=== PATIENT | female | born 1970 | race Caucasian/White ===

== ENCOUNTER → 2018-02-14 00:28 | Outpatient (CLI) | payer MEDICAID, SELFPAY ==
--- NOTE | 2018-02-14 12:32 | MERGE_ITS ---
*[facility]* * Cardiology* [address] [place] [address] Date of study: 02/14/2018 Transthoracic Echocardiography M-mode, complete 2D, complete spectral Doppler, and color Doppler *STUDY CONCLUSIONS* Impressions: The 04/2017 study was not available for direct comparison, however, there has been no significant change from the report of that study. Summary: 1. Left ventricle: Systolic function was normal. The estimated ejection fraction was 55-60%. Wall motion was normal; there were no regional wall motion abnormalities. Diastolic parameters were normal. Global longitudinal strain was normal at -19.6 %. 2. Right ventricle: The cavity size was normal. Wall thickness was normal. Systolic function was normal. *PATIENT PRESENTATION* Height: 175.3cm ((69in) ) S/D Pressure: 119 / 71 Weight: 54.4kg ((119.7lb) ) BSA: 1.66m^2 Test start time: 12:40 PM. Test stop time: 01:30 PM. PERFORMING Unknown ORDERING Herbert Ramos REFERRING Herbert Ramos PERFORMING [facility] [employer] RT Kristine Shane)(DAVID)CORTEZ *PROCEDURE DATA* Procedure information: The patient was identified by two identifiers. This study was interpreted by [facility] Cardiology. Pertinent images and digital data are archived for permanent storage and are available for subsequent review. No prior study was available for comparison. Study status: Routine. Transthoracic echocardiography. M-mode, complete 2D, complete spectral Doppler, and color Doppler. A Transthoracic Echocardiogram was performed. Scanning was performed from the parasternal, apical, subcostal, and suprasternal notch acoustic windows. Images were obtained using an [id number] cardiac ultrasound machine. Image quality was adequate. Study completion: The patient tolerated the procedure well. There were no complications. 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 *CARDIAC ANATOMY* Left ventricle: Systolic function was normal. The estimated ejection fraction was 55-60%. Wall motion was normal; there were no regional wall motion abnormalities. Global longitudinal strain was normal at -19.6 %. Diastolic parameters were normal. Aortic valve: Mildly thickened leaflets. Doppler: There was trivial regurgitation. VTI ratio of LVOT to aortic valve: 0.84. Valve area (VTI): 2.7cm^2. Indexed valve area (VTI): 1.6cm^2/m^2. Peak velocity ratio of LVOT to aortic valve: 0.81. Valve area (Vmax): 2.6cm^2. Indexed valve area (Vmax): 1.5cm^2/m^2. Mean velocity ratio of LVOT to aortic valve: 0.88. Valve area (Vmean): 2.8cm^2. Indexed valve area (Vmean): 1.7cm^2/m^2. Mean gradient (S): 4.5mm Hg. Peak gradient (S): 8.2mm Hg. Mitral valve: Structurally normal valve. Mobility was not restricted. Doppler: Transvalvular velocity was within the normal range. There was no evidence for stenosis. There was no significant regurgitation. Valve area by pressure half-time: 4.4cm^2. Indexed valve area by pressure half-time: 2.6cm^2/m^2. Left atrium: The atrium was normal in size. Right ventricle: The cavity size was normal. Wall thickness was normal. Systolic function was normal. Pulmonic valve: The pulmonary valve appears to be grossly normal. Doppler: Transvalvular velocity was within the normal range. There was no evidence for stenosis. There was no significant regurgitation. Peak gradient (S): 3.9mm Hg. Tricuspid valve: Structurally normal valve. Doppler: Transvalvular velocity was within the normal range. There was no evidence for stenosis. There was trivial regurgitation. Pulmonary artery: Pulmonary systolic pressure was in the range of 30mm Hg to 35mm Hg. Right atrium: The atrium was normal in size. Pericardium: There was no pericardial effusion. Systemic veins: Inferior vena cava: Well visualized. The vessel was patent and normal in size. The respirophasic diameter changes were in the normal range (greater than or equal to 50%). Baseline ECG: Normal sinus rhythm. Measurements Left ventricle Value Reference LV ID, ED, PLAX 4.7 cm 3.5 - 6.0 LV ID, ES, PLAX 3.4 cm 2.1 - 4.0 LV PW thickness, ED, PLAX 1.0 cm LV end-diastolic volume, 1-p A2C 115 ml LV ejection fraction, 1-p A2C 65 % LV end-diastolic volume, 1-p A4C 94 ml LV ejection fraction, 1-p A4C 56 % LV e', lateral 0.102 m/sec LV E/e', lateral 6 LV e', medial 0.082 m/sec LV E/e', medial 8 LV e', average 0.092 m/sec LV E/e', average 7 Ventricular septum Value Reference IVS thickness, ED, PLAX 0.9 cm LVOT Value Reference LVOT ID, A-P 2.0 cm LVOT area 3.2 cm^2 LVOT peak velocity, S 1.16 m/sec LVOT mean velocity, S 0.88 m/sec LVOT VTI, S 23.0 cm LVOT peak gradient, S 5.4 mm Hg LVOT mean gradient, S 3.3 mm Hg Stroke volume (SV), LVOT DP 73 ml Stroke index (SV/bsa), LVOT DP 44 ml/m^2 Aortic valve Value Reference Aortic valve peak velocity, S 1.4 m/sec Aortic valve mean velocity, S 1 m/sec Aortic valve VTI, S 27.4 cm Aortic mean gradient, S 4.5 mm Hg Aortic peak gradient, S 8.2 mm Hg VTI ratio, LVOT/AV 0.84 Aortic valve area, VTI 2.7 cm^2 Velocity ratio, peak, LVOT/AV 0.81 Aortic valve area, peak velocity 2.6 cm^2 Velocity ratio, mean, LVOT/AV 0.88 Aortic valve area, mean velocity 2.8 cm^2 Aortic valve area/bsa, mean velocity 1.7 cm^2/m^2 Aorta Value Reference Aortic root ID, ED 2.9 cm Ascending aorta ID, A-P, S 3.2 cm RVOT Value Reference RVOT VTI, S 16.8 cm Left atrium Value Reference LA ID, A-P, ES 3.6 cm LA ID/bsa, A-P 2.2 cm/m^2 <=2.2 LA area, ES, A4C 17.4 cm^2 8.8 - 23.4 LA area, ES, A2C 15 cm^2 LA volume/bsa, ES, 1-p A4C 29 ml/m^2 LA volume, ES, 2-p 37 ml LA volume/bsa, ES, 2-p 22 ml/m^2 LA/aortic root ratio 1.26 Mitral valve Value Reference Mitral E-wave peak velocity 0.65 m/sec Mitral A-wave peak velocity 0.61 m/sec Mitral deceleration time 174 ms 150 - 230 Mitral pressure half-time 50 ms Mitral E/A ratio, peak 1.08 Mitral valve area, PHT, DP 4.4 cm^2 Pulmonary veins Value Reference Pulmonary vein peak velocity, S 0.61 m/sec Pulmonary vein peak velocity, D 0.52 m/sec Pulmonary vein velocity ratio, peak, 1.17 S/D Pulmonary vein A-wave reversal peak 0.87 m/sec velocity Tricuspid valve Value Reference Tricuspid regurg peak velocity 2.6 m/sec Tricuspid peak RV-RA gradient 26.9 mm Hg Right atrium Value Reference RA area, ES, A4C 11.3 cm^2 8.3 - 19.5 Pulmonic valve Value Reference Pulmonic peak gradient, S 3.9 mm Hg Legend: (L) and (H) yakelin values outside specified reference range. I have personally reviewed the images and have reviewed and edited the reported findings. Electronically signed by Teja Kan 02/14/2018 14:33
== END ==
PROVIDERS: PCP Nurse Practitioner Gerontology; Visit Provider Internal Medicine Medical Oncology
DX: C50.411 Malignant neoplasm of upper-outer quadrant of right female breast (principal); Z17.0 Estrogen receptor positive status [ER+]; Z13.6 Encounter for screening for cardiovascular disorders
CPT/HCPCS: 93306

== ENCOUNTER 2018-02-22 03:08 | Outpatient (RCR) | payer MEDICAID, SELFPAY ==
[2018-02-22] MEDS: Normal Saline Flush 10 ML SYR IVP (07:10)
[2018-02-22 07:30] LABS: Abs Immature Grans 0.01 k/cumm (0.0-0.09); Absolute Eosinophil Count 0.12 k/cumm (0.0-0.7); Absolute Neutrophil Count 3.54 k/cumm (1.2-6.7); Eosinophils % 2.1; HCT 38.8 % (36.0-46.0); HGB 13.5 g/dL (12.0-15.5); Immature Grans % 0.2; Lymphocytes % 28.2; Mean Corp. HGB Concentration 34.8 g/dL (32.0-36.0); Mean Corpuscular Volume 103.5 fL (80-95); Mean Platelet Volume 10.4 fL (8.0-11.0); Monocytes % 7.1; Neutrophils % 62.4; Platelet Count 173 x1000/uL (130-400); RBC 3.75 m/cumm (4.00-5.20); RBC Distribution Width 12.8 % (11.7-14.6); White Blood Cell Count 5.67 k/cumm (4.4-10.8)
[2018-02-22 07:43] LABS: ALT 30 U/L (12-78); AST 21 U/L (15-37); Albumin 3.4 g/dL (3.4-5.0); Alkaline Phosphatase 74 U/L (46-116); Anion Gap 10.9 mmol/L (3-11); BUN 7 mg/dL (7-18); Bilirubin, Total 0.3 mg/dL (0.2-1.0); CO2 27.1 mmol/L (21.0-32.0); CREATININE 0.58 mg/dL (0.55-1.02); Calcium 8.4 mg/dL (8.5-10.1); Chloride 103 mmol/L (98-107); Glucose 95 mg/dL (70-100); Potassium 3.6 mmol/L (3.5-5.1); Sodium 141 mmol/L (136-145)
[2018-02-23 09:59] LABS: FSH 109.4 mIU/ml; LH 64.8 mIU/ml
[2018-02-24 16:04] LABS: Estradiol, Mass Spectrometry <10 pg/mL; Estrone <10 pg/mL
[2018-03-15] MEDS: Normal Saline Flush 10 ML SYR IVP (07:45)
[2018-03-15 08:00] LABS: Abs Immature Grans 0.02 k/cumm (0.0-0.09); Absolute Basophil Count 0.01 k/cumm (0.0-0.2); Absolute Eosinophil Count 0.99 k/cumm (0.0-0.7); Absolute Lymphocyte Count 1.74 k/cumm (1.2-3.4); Absolute Monocyte Count 0.49 k/cumm (0.11-0.7); Absolute Neutrophil Count 6.46 k/cumm (1.2-6.7); Basophils % 0.1; Eosinophils % 10.2; HGB 13.7 g/dL (12.0-15.5); Immature Grans % 0.2; Lymphocytes % 17.9; Mean Corp. HGB Concentration 34.3 g/dL (32.0-36.0); Mean Corpuscular Volume 102.3 fL (80-95); Mean Platelet Volume 10.5 fL (8.0-11.0); Neutrophils % 66.6; Platelet Count 204 x1000/uL (130-400); RBC 3.91 m/cumm (4.00-5.20); RBC Distribution Width 12.5 % (11.7-14.6); White Blood Cell Count 9.71 k/cumm (4.4-10.8)
[2018-03-15 08:15] LABS: ALT 31 U/L (12-78); AST 26 U/L (15-37); Albumin 3.5 g/dL (3.4-5.0); Alkaline Phosphatase 88 U/L (46-116); Anion Gap 8.4 mmol/L (3-11); BUN 9 mg/dL (7-18); Bilirubin, Total 0.4 mg/dL (0.2-1.0); CO2 25.6 mmol/L (21.0-32.0); CREATININE 0.61 mg/dL (0.55-1.02); Calcium 8.7 mg/dL (8.5-10.1); Chloride 101 mmol/L (98-107); Glucose 93 mg/dL (70-100); Potassium 3.9 mmol/L (3.5-5.1); Sodium 135 mmol/L (136-145); Total Protein 7.3 g/dL (6.4-8.2)
== END 2018-03-16 ==
LOC: INF 03:27
PROVIDERS: PCP Nurse Practitioner Gerontology; Visit Provider Internal Medicine Medical Oncology
DX: C50.411 Malignant neoplasm of upper-outer quadrant of right female breast (principal); Z17.0 Estrogen receptor positive status [ER+]; Z45.2 Encounter for adjustment and management of vascular access device
CPT/HCPCS: 36591; 80053; 82670; 82679; 83001; 83002; 85025

== ENCOUNTER 2018-04-05 01:16 | Outpatient (RCR) | payer MEDICAID, SELFPAY ==
[2018-04-05] MEDS: Normal Saline Flush 10 ML SYR IVP (12:20)
[2018-04-05 13:00] LABS: Absolute Basophil Count 0.01 k/cumm (0.0-0.2); Absolute Eosinophil Count 0.13 k/cumm (0.0-0.7); Absolute Lymphocyte Count 1.73 k/cumm (1.2-3.4); Absolute Neutrophil Count 3.74 k/cumm (1.2-6.7); Basophils % 0.2; Eosinophils % 2.1; HCT 39.3 % (36.0-46.0); HGB 13.3 g/dL (12.0-15.5); Lymphocytes % 28.3; Mean Corp. HGB Concentration 33.8 g/dL (32.0-36.0); Mean Corpuscular Hemoglobin 34.8 pg (27.0-33.0); Mean Corpuscular Volume 102.9 fL (80-95); Mean Platelet Volume 10.6 fL (8.0-11.0); Monocytes % 8.2; Neutrophils % 61.2; Platelet Count 175 x1000/uL (130-400); RBC 3.82 m/cumm (4.00-5.20); RBC Distribution Width 12.6 % (11.7-14.6); White Blood Cell Count 6.11 k/cumm (4.4-10.8)
[2018-04-05 13:19] LABS: ALT 31 U/L (12-78); AST 25 U/L (15-37); Albumin 3.4 g/dL (3.4-5.0); Alkaline Phosphatase 90 U/L (46-116); Anion Gap 8.8 mmol/L (3-11); BUN 12 mg/dL (7-18); Bilirubin, Total 0.4 mg/dL (0.2-1.0); CO2 28.2 mmol/L (21.0-32.0); CREATININE 0.62 mg/dL (0.55-1.02); Calcium 8.7 mg/dL (8.5-10.1); Chloride 101 mmol/L (98-107); Glucose 95 mg/dL (70-100); Potassium 3.3 mmol/L (3.5-5.1); Sodium 138 mmol/L (136-145)
== END 2018-04-15 23:59 | disposition home or self-care (01) ==
LOC: INF 01:16
PROVIDERS: PCP Nurse Practitioner Family; Visit Provider Internal Medicine Medical Oncology
DX: C50.411 Malignant neoplasm of upper-outer quadrant of right female breast (principal); Z17.0 Estrogen receptor positive status [ER+]; Z45.2 Encounter for adjustment and management of vascular access device
CPT/HCPCS: 36591; 80053; 85025

== ENCOUNTER 2018-04-24 01:03 | Outpatient (CLI) | payer MEDICAID, SELFPAY ==
--- NOTE | 2018-04-24 07:44 | DI.US_ITS ---
SYMPTOMS/DIAGNOSIS: FAMILY H/O AAA, MOTHER AND MATERNAL GRANDMOTHER, Z82.49, FAMILY H/O ISCHEMIC HEART DISEASE ABDOMINAL AORTIC ULTRASOUND: Sonographic evaluation of the abdominal aorta was performed. There is no evidence of an abdominal aortic aneurysm. Maximum transverse diameter of the aorta is seen proximally and measures 2.7 cm. IMPRESSION: No evidence of an abdominal aortic aneurysm.
[2018-04-25 11:46] LABS: Alpha 1 Antitrypsin,Serum 114 mg/dL (90-200)
== END 2018-04-24 01:23 ==
PROVIDERS: PCP Nurse Practitioner Family; Visit Provider Nurse Practitioner Family
DX: J43.9 Emphysema, unspecified (principal); Z13.6 Encounter for screening for cardiovascular disorders; Z82.49 Family history of ischemic heart disease and other diseases of the circulatory system
CPT/HCPCS: 36415; 76706; 82103

== ENCOUNTER 2018-04-26 02:31 | Outpatient (CLI) | payer MEDICAID, SELFPAY ==
[2018-04-26] MEDS: Albuterol HFA 18 GM 200 PUFF INH IH (14:19)
[2018-04-26] MEDS: Inhaler, Assist Device 1 EACH MC (14:19)
--- NOTE | 2018-04-27 10:09 | PFT_ITS ---
PULMONARY FUNCTION TEST REPORT DATE OF SERVICE: April 26, 2018 REQUESTING PROVIDER: Michelle Aguiar APRN Spirometry shows no evidence of obstructive airways disease. No bronchodilator response. Lung volumes show no evidence of restriction. Diffusion capacity moderately reduced, even when corrected to alveolar volume. Airways resistance normal. IMPRESSION: While there is no evidence of obstructive airways disease, there is mild hyperinflation and air trapping and moderate diffusion defect. This can be seen in non-communicating bullous disease, other considerations are early developing interstitial lung disease or pulmonary hypertension. Therefore clinical correlation recommended. DOROTEO/lori D/ SEE SCANNED DOCUMENT IN THE EMR FOR DATA AND GRAPHS
== END 2018-04-26 02:51 ==
PROVIDERS: PCP Nurse Practitioner Family; Visit Provider Nurse Practitioner Family
DX: J43.9 Emphysema, unspecified (principal); J44.9 Chronic obstructive pulmonary disease, unspecified
CPT/HCPCS: 94060; 94150; 94726; 94729

== ENCOUNTER 2018-04-27 01:47 | Outpatient (RCR) | payer MEDICAID, SELFPAY ==
[2018-04-27] MEDS: Normal Saline Flush 10 ML SYR IVP (07:40)
[2018-04-27 07:56] LABS: Abs Immature Grans 0.01 k/cumm (0.0-0.09); Absolute Basophil Count 0.01 k/cumm (0.0-0.2); Absolute Eosinophil Count 0.11 k/cumm (0.0-0.7); Absolute Lymphocyte Count 1.65 k/cumm (1.2-3.4); Absolute Monocyte Count 0.43 k/cumm (0.11-0.7); Basophils % 0.2; Eosinophils % 1.8; HCT 39.4 % (36.0-46.0); HGB 13.7 g/dL (12.0-15.5); Immature Grans % 0.2; Lymphocytes % 26.6; Mean Corp. HGB Concentration 34.8 g/dL (32.0-36.0); Mean Corpuscular Hemoglobin 34.9 pg (27.0-33.0); Mean Corpuscular Volume 100.3 fL (80-95); Mean Platelet Volume 10.4 fL (8.0-11.0); Monocytes % 6.9; Neutrophils % 64.3; Platelet Count 197 x1000/uL (130-400); RBC 3.93 m/cumm (4.00-5.20); RBC Distribution Width 12.7 % (11.7-14.6); White Blood Cell Count 6.21 k/cumm (4.4-10.8)
[2018-04-27 08:11] LABS: ALT 36 U/L (12-78); AST 28 U/L (15-37); Albumin 3.3 g/dL (3.4-5.0); Alkaline Phosphatase 81 U/L (46-116); Anion Gap 7.4 mmol/L (3-11); BUN 6 mg/dL (7-18); Bilirubin, Total 0.4 mg/dL (0.2-1.0); CO2 28.6 mmol/L (21.0-32.0); CREATININE 0.58 mg/dL (0.55-1.02); Calcium 8.6 mg/dL (8.5-10.1); Chloride 102 mmol/L (98-107); Glucose 100 mg/dL (70-100); Potassium 3.8 mmol/L (3.5-5.1); Sodium 138 mmol/L (136-145)
== END 2018-05-16 23:59 | disposition home or self-care (01) ==
LOC: INF 01:47
PROVIDERS: PCP Nurse Practitioner Family; Visit Provider Internal Medicine Medical Oncology
DX: C50.411 Malignant neoplasm of upper-outer quadrant of right female breast (principal); Z17.0 Estrogen receptor positive status [ER+]; Z45.2 Encounter for adjustment and management of vascular access device
CPT/HCPCS: 36591; 80053; 85025

== ENCOUNTER 2018-05-15 00:37 | Outpatient (CLI) | payer MEDICAID, SELFPAY ==
--- NOTE | 2018-05-15 14:10 | DI.RAD_ITS ---
SYMPTOMS/DIAGNOSIS: H/O BREAST CA, MALIGNANT NEOPLASM OF LOWER INNER QUADRANT OF RIGHT BREAST, C50.311, Z17.0 DEXA SCAN: Routine examination. No priors. Evaluation of the lateral spine shows no compression fracture deformities. Evaluation of the left hip shows a total T score of -1.2 and a Z score of -0.9. This is consistent with osteopenia and an increased fracture risk. Evaluation of the lumbar spine shows a total T score of -0.9 and a Z score of - 0.3, which is within normal limits. No evidence of osteoporosis is present. IMPRESSION: Osteopenia in the left hip. No evidence of osteoporosis.
== END 2018-05-15 00:57 ==
PROVIDERS: PCP Nurse Practitioner Family; Visit Provider Nurse Practitioner Family
DX: C50.311 Malignant neoplasm of lower-inner quadrant of right female breast (principal); Z17.0 Estrogen receptor positive status [ER+]; M85.88 Other specified disorders of bone density and structure, other site
CPT/HCPCS: 77080

== ENCOUNTER 2018-06-21 12:30 | Outpatient (CLI) | payer MEDICAID, SELFPAY ==
[2018-06-21 12:59] LABS: Abs Immature Grans 0.01 k/cumm (0.0-0.09); Absolute Basophil Count 0.01 k/cumm (0.0-0.2); Absolute Eosinophil Count 0.13 k/cumm (0.0-0.7); Absolute Monocyte Count 0.53 k/cumm (0.11-0.7); Absolute Neutrophil Count 4.38 k/cumm (1.2-6.7); Basophils % 0.1; Eosinophils % 1.8; HCT 41.5 % (36.0-46.0); HGB 14.2 g/dL (12.0-15.5); Immature Grans % 0.1; Lymphocytes % 31.3; Mean Corp. HGB Concentration 34.2 g/dL (32.0-36.0); Mean Corpuscular Hemoglobin 34.6 pg (27.0-33.0); Mean Corpuscular Volume 101.2 fL (80-95); Mean Platelet Volume 10.3 fL (8.0-11.0); Monocytes % 7.2; Neutrophils % 59.5; Platelet Count 181 x1000/uL (130-400); RBC Distribution Width 12.8 % (11.7-14.6); White Blood Cell Count 7.36 k/cumm (4.4-10.8)
[2018-06-21 13:12] LABS: AST 27 U/L (15-37); Albumin 3.7 g/dL (3.4-5.0); Alkaline Phosphatase 76 U/L (46-116); Anion Gap 9.7 mmol/L (3-11); Bilirubin, Total 0.4 mg/dL (0.2-1.0); CO2 28.3 mmol/L (21.0-32.0); CREATININE 0.72 mg/dL (0.55-1.02); Calcium 9.3 mg/dL (8.5-10.1); Chloride 100 mmol/L (98-107); Glucose 96 mg/dL (70-100); Potassium 3.7 mmol/L (3.5-5.1); Sodium 138 mmol/L (136-145); Total Protein 7.3 g/dL (6.4-8.2)
[2018-06-21 13:23] LABS: ALT 35 U/L (12-78); BUN 14 mg/dL (7-18)
== END 2018-06-21 12:50 ==
PROVIDERS: PCP Nurse Practitioner Family; Visit Provider Internal Medicine Medical Oncology
DX: C50.411 Malignant neoplasm of upper-outer quadrant of right female breast (principal); Z17.0 Estrogen receptor positive status [ER+]
CPT/HCPCS: 36415; 80053; 85025

== ENCOUNTER 2018-08-09 12:56 | Outpatient (REF) | payer MEDICAID, SELFPAY ==
--- NOTE | 2018-08-10 11:20 | PAPFT_PTH ---
PATIENT: YANELI ADKINS LOC: [facility] U#:[id number] AGE/SX: 47/F ROOM: RE08/09/[address]: LOREN Brown : 1970 BED: DIS: 08/09/2018 SPEC #: [id number] RECD: 08/10/18 12:53 STATUS: SANTO REAlli #: [id number] DREW: 08/10/18 11:[address]: Michelle Aguiar DEPT: [facility] Cytology RECD BY: Martha Thorpe Tissues: 1 - CX/ENDOCX FOR PAP SMEARS Procedures: PAP THIN PREP/[facility] Screening HPV DNA PROBE Comments: [id number]
== END 2018-08-09 13:16 ==
LOC: LBN 12:56
PROVIDERS: PCP Nurse Practitioner Family; Visit Provider Nurse Practitioner Family
DX: Z12.4 Encounter for screening for malignant neoplasm of cervix (principal); Z11.51 Encounter for screening for human papillomavirus (HPV)
CPT/HCPCS: 88142; 87624

== ENCOUNTER 2018-09-19 07:04 | Outpatient (CLI) | payer MEDICAID, SELFPAY ==
[2018-09-19 07:41] LABS: Abs Immature Grans 0.01 k/cumm (0.0-0.09); Absolute Basophil Count 0.01 k/cumm (0.0-0.2); Absolute Eosinophil Count 0.37 k/cumm (0.0-0.7); Absolute Lymphocyte Count 1.62 k/cumm (1.2-3.4); Absolute Monocyte Count 0.37 k/cumm (0.11-0.7); Absolute Neutrophil Count 3.42 k/cumm (1.2-6.7); Basophils % 0.2; Eosinophils % 6.4; HCT 40.1 % (36.0-46.0); HGB 13.7 g/dL (12.0-15.5); Immature Grans % 0.2; Lymphocytes % 27.9; Mean Corp. HGB Concentration 34.2 g/dL (32.0-36.0); Mean Corpuscular Volume 102.6 fL (80-95); Mean Platelet Volume 10.5 fL (8.0-11.0); Monocytes % 6.4; Neutrophils % 58.9; Platelet Count 191 x1000/uL (130-400); RBC 3.91 m/cumm (4.00-5.20); RBC Distribution Width 12.4 % (11.7-14.6)
[2018-09-19 09:55] LABS: ALT 30 U/L (12-78); AST 28 U/L (15-37); Albumin 3.7 g/dL (3.4-5.0); Alkaline Phosphatase 77 U/L (46-116); Anion Gap 9.4 mmol/L (3-11); BUN 9 mg/dL (7-18); Bilirubin, Total 0.4 mg/dL (0.2-1.0); CO2 28.6 mmol/L (21.0-32.0); CREATININE 0.57 mg/dL (0.55-1.02); Chloride 103 mmol/L (98-107); Cholesterol 219 mg/dL (50-200); Glucose 78 mg/dL (70-100); HDL Cholesterol 83 mg/dL (40-60); LDL CHOLESTEROL 112 mg/dL (<100); Potassium 3.9 mmol/L (3.5-5.1); Sodium 141 mmol/L (136-145); TSH 0.97 uIU/mL (0.358-3.74); Triglyceride 124 mg/dL (30-150)
[2018-09-19 10:17] LABS: FREE T4 1.09 ng/dL (0.76-1.46)
== END 2018-09-19 07:24 ==
PROVIDERS: PCP Nurse Practitioner Family; Visit Provider Nurse Practitioner Adult Health
DX: E78.5 Hyperlipidemia, unspecified (principal); C50.311 Malignant neoplasm of lower-inner quadrant of right female breast; Z17.0 Estrogen receptor positive status [ER+]
CPT/HCPCS: 36415; 80048; 80053; 80061; 83721; 84439; 84443; 85025

== ENCOUNTER 2019-01-11 01:19 | Outpatient (CLI) | payer MEDICAID, SELFPAY ==
--- NOTE | 2019-01-11 10:31 | MERGE_ITS ---
*[facility]* *[facility] Cardiology* [address] [place] [address] Date of study: 01/11/2019 Transthoracic Echocardiography M-mode, complete 2D, complete spectral Doppler, and color Doppler *STUDY CONCLUSIONS* Impressions: Compared to the prior study, there has been no significant interval change. Summary: 1. Left ventricle: The cavity size was normal. Wall thickness was normal. Systolic function was normal. The estimated ejection fraction was 60-65%. Wall motion was normal; there were no regional wall motion abnormalities. Diastolic parameters were normal. Global longitudinal strain was normal, -17.5%. 2. Aortic valve: There was trivial regurgitation. 3. Right ventricle: The cavity size was normal. Wall thickness was normal. Systolic function was normal. *PATIENT PRESENTATION* Height: 175.3cm (69in ) S/D Pressure: 126 / 80 Weight: 54.4kg (119.7lb ) BSA: 1.61m^2 Test start time: 10:30 AM. Test stop time: 11:30 AM. PERFORMING Unknown PERFORMING [facility] [employer] Soraya Miranda ORDERING Aliya Cordon REFERRING Aliya Cordon [place] *PROCEDURE DATA* Procedure information: This study was interpreted by [facility] Cardiology. Pertinent images and digital data are archived for permanent storage and are available for subsequent review. Comparison was made to the study of 02/14/2018. Study status: Routine. Transthoracic echocardiography. M-mode, complete 2D, complete spectral Doppler, and color Doppler. A Transthoracic Echocardiogram was performed. Scanning was performed from the parasternal, apical, subcostal, and suprasternal notch acoustic windows. Images were obtained using an [email or web address] [id number] cardiac ultrasound machine. Image quality was good. Study completion: The patient tolerated the procedure well. History: PMH: Breast cancer *CARDIAC ANATOMY* Left ventricle: The cavity size was normal. Wall thickness was normal. Systolic function was normal. The estimated ejection fraction was 60-65%. Wall motion was normal; there were no regional wall motion abnormalities. Global longitudinal strain was normal, -17.5%. Diastolic parameters were normal. Aortic valve: Trileaflet; normal thickness leaflets. Mobility was not restricted. Doppler: Transvalvular velocity was within the normal range. There was no stenosis. There was trivial regurgitation. VTI ratio of LVOT to aortic valve: 0.86. Valve area (VTI): 2.6cm^2. Indexed valve area (VTI): 1.6cm^2/m^2. Peak velocity ratio of LVOT to aortic valve: 0.85. Valve area (Vmax): 2.6cm^2. Indexed valve area (Vmax): 1.6cm^2/m^2. Mean velocity ratio of LVOT to aortic valve: 0.78. Valve area (Vmean): 2.4cm^2. Indexed valve area (Vmean): 1.5cm^2/m^2. Mean gradient (S): 4mm Hg. Peak gradient (S): 7.1mm Hg. Aorta: Aortic root: The aortic root was normal in size. Ascending aorta: The ascending aorta was normal in size. Mitral valve: Structurally normal valve. Mobility was not restricted. Doppler: Transvalvular velocity was within the normal range. There was no evidence for stenosis. There was no significant regurgitation. Valve area by pressure half-time: 3.6cm^2. Indexed valve area by pressure half-time: 2.2cm^2/m^2. Left atrium: The atrium was normal in size. Right ventricle: The cavity size was normal. Wall thickness was normal. Systolic function was normal. Pulmonic valve: Doppler: Transvalvular velocity was within the normal range. There was no evidence for stenosis. There was no significant regurgitation. Peak gradient (S): 3.6mm Hg. Tricuspid valve: Structurally normal valve. Doppler: Transvalvular velocity was within the normal range. There was no evidence for stenosis. There was no significant regurgitation. Pulmonary artery: Pulmonary systolic pressure was in the range of 25mm Hg to 30mm Hg. Right atrium: The atrium was normal in size. Pericardium: There was no pericardial effusion. Measurements Left ventricle Value 02/14/2018 Reference LV ID, ED, PLAX 4.7 cm 4.7 3.5 - 6.0 LV ID, ES, PLAX 3.3 cm 3.4 2.1 - 4.0 LV PW thickness, ED, PLAX 0.7 cm 1.0 LV end-diastolic volume, 80 ml 115 1-p A2C LV ejection fraction, 1-p 73 % 65 A2C LV end-diastolic volume, 94 ml 94 1-p A4C LV ejection fraction, 1-p 63 % 56 A4C LV e', lateral 0.138 m/sec 0.102 LV E/e', lateral 5 6 LV e', medial 0.11 m/sec 0.082 LV E/e', medial 6 8 LV e', average 0.124 m/sec 0.092 LV E/e', average 6 7 Ventricular septum Value 02/14/2018 Reference IVS thickness, ED, PLAX 0.7 cm 0.9 LVOT Value 02/14/2018 Reference LVOT ID, A-P 2.0 cm 2.0 LVOT area 3.1 cm^2 3.2 LVOT peak velocity, S 1.14 m/sec 1.16 LVOT mean velocity, S 0.74 m/sec 0.88 LVOT VTI, S 23.9 cm 23.0 LVOT peak gradient, S 5.2 mm Hg 5.4 LVOT mean gradient, S 2.6 mm Hg 3.3 Stroke volume (SV), LVOT 73 ml 73 DP Stroke index (SV/bsa), 45 ml/m^2 44 LVOT DP Aortic valve Value 02/14/2018 Reference Aortic valve peak 1.3 m/sec 1.4 velocity, S Aortic valve mean 0.9 m/sec 1 velocity, S Aortic valve VTI, S 28.0 cm 27.4 Aortic mean gradient, S 4 mm Hg 4.5 Aortic peak gradient, S 7.1 mm Hg 8.2 VTI ratio, LVOT/AV 0.86 0.84 Aortic valve area, VTI 2.6 cm^2 2.7 Velocity ratio, peak, 0.85 0.81 LVOT/AV Aortic valve area, peak 2.6 cm^2 2.6 velocity Velocity ratio, mean, 0.78 0.88 LVOT/AV Aortic valve area, mean 2.4 cm^2 2.8 velocity Aortic valve area/bsa, 1.5 cm^2/m^2 1.7 mean velocity Aorta Value 02/14/2018 Reference Aortic root ID, ED 3.2 cm 2.9 Ascending aorta ID, A-P, S 3.3 cm 3.2 Left atrium Value 02/14/2018 Reference LA ID, A-P, ES 2.1 cm 3.6 LA ID/bsa, A-P 1.3 cm/m^2 2.2 <=2.2 LA volume, ES, 2-p 30 ml 37 LA volume/bsa, ES, 2-p 19 ml/m^2 22 LA/aortic root ratio 0.66 1.26 Mitral valve Value 02/14/2018 Reference Mitral E-wave peak 0.7 m/sec 0.65 velocity Mitral A-wave peak 0.81 m/sec 0.61 velocity Mitral deceleration time 209 ms 174 150 - 230 Mitral pressure half-time 61 ms 50 Mitral E/A ratio, peak 0.86 1.08 Mitral valve area, PHT, DP 3.6 cm^2 4.4 Tricuspid valve Value 02/14/2018 Reference Tricuspid regurg peak 2.3 m/sec 2.6 velocity Tricuspid peak RV-RA 22 mm Hg 26.9 gradient Right atrium Value 02/14/2018 Reference RA area, ES, A4C (L) 6.6 cm^2 11.3 8.3 - 19.5 Pulmonic valve Value 02/14/2018 Reference Pulmonic peak gradient, S 3.6 mm Hg 3.9 Legend: (L) and (H) yakelin values outside specified reference range. I have personally reviewed the images and have reviewed and edited the reported findings. Electronically signed by Teja Kan 01/11/2019 13:55
== END 2019-01-11 01:39 ==
PROVIDERS: PCP Nurse Practitioner Family; Visit Provider Nurse Practitioner Adult Health
DX: C50.311 Malignant neoplasm of lower-inner quadrant of right female breast (principal); Z17.0 Estrogen receptor positive status [ER+]; I35.1 Nonrheumatic aortic (valve) insufficiency
CPT/HCPCS: 93306

== ENCOUNTER 2019-05-06 11:57 | Outpatient (CLI) | payer MEDICAID, SELFPAY ==
[2019-05-06 12:19] LABS: Abs Immature Grans 0.01 k/cumm (0.0-0.09); Absolute Basophil Count 0.03 k/cumm (0.0-0.2); Absolute Eosinophil Count 0.04 k/cumm (0.0-0.7); Absolute Lymphocyte Count 1.89 k/cumm (1.2-3.4); Absolute Neutrophil Count 5.58 k/cumm (1.2-6.7); Basophils % 0.4; Eosinophils % 0.5; HCT 40.8 % (36.0-46.0); HGB 13.9 g/dL (12.0-15.5); Immature Grans % 0.1; Lymphocytes % 23.2; Mean Corp. HGB Concentration 34.1 g/dL (32.0-36.0); Mean Corpuscular Hemoglobin 34.7 pg (27.0-33.0); Mean Corpuscular Volume 101.7 fL (80-95); Monocytes % 7.4; Neutrophils % 68.4; Platelet Count 186 x1000/uL (130-400); RBC 4.01 m/cumm (4.00-5.20); RBC Distribution Width 12.3 % (11.7-14.6); White Blood Cell Count 8.15 k/cumm (4.4-10.8)
[2019-05-06 12:47] LABS: ALT 22 U/L (14-59); AST 21 U/L (15-37); Albumin 3.6 g/dL (3.4-5.0); Alkaline Phosphatase 84 U/L (46-116); Anion Gap 9.9 mmol/L (3-11); BUN 16 mg/dL (7-18); Bilirubin, Total 0.3 mg/dL (0.2-1.0); CO2 27.1 mmol/L (21.0-32.0); CREATININE 0.63 mg/dL (0.55-1.02); Calcium 8.7 mg/dL (8.5-10.1); Chloride 102 mmol/L (98-107); Glucose 101 mg/dL (70-100); Potassium 3.6 mmol/L (3.5-5.1); Sodium 139 mmol/L (136-145); Total Protein 7.3 g/dL (6.4-8.2)
== END 2019-05-06 12:17 ==
PROVIDERS: PCP Nurse Practitioner Family; Visit Provider Nurse Practitioner Adult Health
DX: C50.311 Malignant neoplasm of lower-inner quadrant of right female breast (principal); Z17.0 Estrogen receptor positive status [ER+]
CPT/HCPCS: 36415; 80053; 85025

== ENCOUNTER 2019-08-16 08:01 | Outpatient (CLI) | payer MEDICAID, SELFPAY ==
[2019-08-16 08:55] LABS: Abs Immature Grans 0.01 k/cumm (0.0-0.09); Absolute Basophil Count 0.02 k/cumm (0.0-0.2); Absolute Eosinophil Count 0.06 k/cumm (0.0-0.7); Absolute Lymphocyte Count 1.38 k/cumm (1.2-3.4); Absolute Monocyte Count 0.68 k/cumm (0.11-0.7); Absolute Neutrophil Count 5.13 k/cumm (1.2-6.7); Basophils % 0.3; Eosinophils % 0.8; HCT 40.1 % (36.0-46.0); HGB 13.5 g/dL (12.0-15.5); Immature Grans % 0.1 %; Mean Corp. HGB Concentration 33.7 g/dL (32.0-36.0); Mean Corpuscular Hemoglobin 33.7 pg (27.0-33.0); Mean Platelet Volume 10.2 fL (8.0-11.0); Monocytes % 9.3; Neutrophils % 70.5; Platelet Count 238 x1000/uL (130-400); RBC 4.01 m/cumm (4.00-5.20); RBC Distribution Width 12.7 % (11.7-14.6); White Blood Cell Count 7.28 k/cumm (4.4-10.8)
[2019-08-16 09:57] LABS: ALT 27 U/L (14-59); AST 25 U/L (15-37); Albumin 3.8 g/dL (3.4-5.0); Alkaline Phosphatase 87 U/L (46-116); Anion Gap 9.8 mmol/L (3-11); BUN 12 mg/dL (7-18); Bilirubin, Total 0.5 mg/dL (0.2-1.0); CO2 29.2 mmol/L (21.0-32.0); CREATININE 0.63 mg/dL (0.55-1.02); Calcium 8.9 mg/dL (8.5-10.1); Chloride 100 mmol/L (98-107); FREE T4 1.22 ng/dL (0.76-1.46); Glucose 91 mg/dL (74-106); Potassium 4.2 mmol/L (3.5-5.1); Sodium 139 mmol/L (136-145); TSH 0.78 uIU/mL (0.36-3.74); Total Protein 7.1 g/dL (6.4-8.2)
[2019-08-16 14:17] LABS: Calculated LDL 151 mg/dL (<100); Cholesterol 243 mg/dL (<200); HDL Cholesterol 77 mg/dL (40-60); Triglyceride 77 mg/dL (<150)
[2019-08-16 14:27] LABS: Hemoglobin A1C 5.4 % (3.8-5.6)
== END 2019-08-16 08:21 ==
PROVIDERS: PCP Nurse Practitioner Family; Visit Provider Nurse Practitioner Family
DX: R53.83 Other fatigue (principal); E78.5 Hyperlipidemia, unspecified
CPT/HCPCS: 36415; 80053; 80061; 83036; 84439; 84443; 85025

== ENCOUNTER 2019-08-21 02:10 | Outpatient (CLI) | payer MEDICAID, SELFPAY ==
--- NOTE | 2019-08-21 14:32 | DI.US_ITS ---
EXAM: US UPPER EXTREMITY VENOUS RT CLINICAL HISTORY: PROMINENT VASCULATURE RUE, HX OF RIGHT BREAST CA M79.601 PAIN RT ARM, M79.89-SOFT TISSUE DISORDER. TECHNIQUE: Ultrasound examination of the right upper extremity venous system(s) is performed using g rayscale, color-flow, and spectral Doppler analysis. COMPARISON: No previous for comparison FINDINGS: The right internal jugular, axillary, cephalic, basilic, and brachial veins are patent without eviden ce of thrombosis. There is hypoechoic thrombus seen in the right subclavian vein. IMPRESSION: Right subclavian DVT. Findings were discussed with the patient's primary care team on the date of the examination.
== END 2019-08-21 02:30 ==
PROVIDERS: PCP Nurse Practitioner Family; Visit Provider Nurse Practitioner Family
DX: M79.601 Pain in right arm (principal); M79.89 Other specified soft tissue disorders; Z85.3 Personal history of malignant neoplasm of breast; I82.B11 Acute embolism and thrombosis of right subclavian vein; I82.811 Embolism and thrombosis of superficial veins of right lower extremity; R22.2 Localized swelling, mass and lump, trunk; F17.210 Nicotine dependence, cigarettes, uncomplicated
CPT/HCPCS: 36415; 71275; 80053; 96360; 99285; 83735; 84484; 85025; 85610; 85730; 93971; J3490

== ENCOUNTER 2019-08-21 15:41 | Emergency (ER) | payer MEDICAID, SELFPAY ==
[2019-08-21 15:46] VITALS: BP 132/89; PULSE 74; TEMP 36.5; O2SAT 99
[2019-08-21 15:50] VITALS: RESP 16
--- NOTE | 2019-08-21 16:08 | ED.GENADUL_ITS ---
Discharge Plan Disposition Patient Disposition: HOME Condition: Fair Discharge Details Chief Complaint: Vascular Clinical Impression: Peritracheal mass, Acute deep vein thrombosis of upper extremity Primary Care Provider: Michelle Aguiar ED Provider: Desirae Van Home Meds and New Rx's Prescriptions: New Eliquis 5 mg tablet 10 mg PO BID Qty: 60 RF: 0 Continued calcium carbonate [Calcium 600] 600 mg calcium (1,500 mg) tablet 600 mg PO BID RF: 0 cholecalciferol (vitamin D3) 1,000 unit capsule 1,000 unit PO BID RF: 0 anastrozole 1 mg tablet 1 mg PO DAILY RF: 0 Prolia 60 mg/mL syringe 60 mg SC [id number] RF: 0 albuterol sulfate [ProAir HFA] 90 mcg/actuation HFA aerosol inhaler 2 puff Inhalation Q4H PRN Qty: 1 RF: 4 nicotine (polacrilex) 4 mg gum 4 mg BC Q2H MDD 24 PRN (Reason: nicotine cravings) Qty: 100 RF: 4 omeprazole 40 mg capsule,delayed release(DR/EC) 40 mg PO DAILY Qty: 90 RF: 0 Discharge Instructions Instructions: Apixaban (By mouth), Deep Venous Thrombosis (ED) Additional Instructions: Encourage water intake. Encourage smoking cessation. Please take the Eliquis as prescribed. You are given your nighttime dosing here. Her next dose should be tomorrow morning. You will need follow-up with your oncology team at [facility], they advised that they will call you tomorrow but I would also like for you to call them. [phone] If you develop shortness of breath, chest pain, difficulty breathing, increased pain or other new/worsening symptoms please seek care urgently once again. Referrals: Michelle Aguiar, ESTRELLITA [Primary Care Provider] - Discharge Data Discharge Date/Time-TO BE ENTERED AT DEPARTURE: 08/21/19 20:30 Medical Decision Making Fifi is a pleasant 48 year old RHD female, accompanied by significant other, at the direct of the radiologist. Patient was here for outpatient study and found to have right subclavian DVT. Patient states that she started noting right arm swelling and prominent veins across the right anterior chest and RUE on 07/25/2019. States that she has been developing SOB. No difficulty breathing. Denies recent travel. S/p tubal ligation. No estrogen use. No previous DVT. Patient is an active smoker. Hx of right sided breast ca, has surgical excision and chemotherapy in 2017. Last mammogram was a few weeks ago and reported to be negative. No fevers, chills or recent illness. US preformed as an outpatient was reviewed by radiologist: FINDINGS: The right internal jugular, axillary, cephalic, basilic, and brachial veins are patent without evidence of thrombosis. There is hypoechoic thrombus seen in the right subclavian vein. IMPRESSION: Right subclavian DVT. Findings were discussed with the patient's primary care team on the date of the examination. On exam, patient is resting comfortably. She has prominent veins on RUE and anterior right chest wall. Normal heart sounds, lungs clear. VS WNL. 2+ distal pulses, full ROM. No palpable lymphadenopathy in axilla. Labs reviewed, potassium 3.3, otherwise no significant abnormality. CT reviewed by radiologist: FINDINGS: Pulmonary arteries: Normal. No pulmonary emboli. Aorta: Unremarkable. No aortic aneurysm. No aortic dissection. Lungs: Moderate subpleural emphysema. No mass or consolidation. Pleural space: Unremarkable. No pneumothorax. No pleural effusion. Heart: Unremarkable. No cardiomegaly. No pericardial effusion. Mediastinum: There is a large right paratracheal mass measuring 7.6 x 6.2 by 7.2 cm. Additional subcentimeter right hilar and subcarinal lymph nodes. Lymph nodes: See Mediastinum Finding. Bones/joints: Unremarkable. No acute fracture. Soft tissues: Unremarkable. IMPRESSION: Right paratracheal mass concerning for malignancy. No evidence of pulmonary embolism. Consulted with Dr. Butts with oncology. She advised could be return vs. new primary lung tumor. We discussed anticoagulation. She advised that if the patient does not want to have the Sub Q injections, apixaban would be acceptable. 10mgx 1week followed by 5mg. Needs biopsy. She advised that as outpatient she will need further imaging. She will contact patients oncology team and discuss todays concerns. Discussed these recommendations with [facility] patient. She will be started on Eliquis. She was given strict return precautions. She iwll call oncology regarding prompt follow up. Encouraged smoking cessation. All of her questions and concerns were addressed, she is in agreement iw this plan. HPI General Mode of arrival: ambulatory . Date/Time Provider Initiated Documentation: 08/21/19 16:08 . Limitations to Documentation: no limitations . Information obtained by: patient, family (significant other) and RN notes reviewed . History of Present Illness 48 year old F presents to the emergency department with the chief complaint of right arm swelling, described as mild, with intensity rated at 3. Quality is described as aching, and is localized to the right and upper extremity. Patient reports no radiation. Patient started experiencing this week(s) (July 25) and it has been constant. No relieving factors improve symptom(s), No exacerbating factors reported . Patient notes other (endorses fatigue); denies chest pain, cough, fever/chills, headaches, loss of appetite, nausea/vomiting, shortness of breath and weakness. Patient did receive the following treatments prior to arrival, none Related Data Home Medications Medication Instructions Recorded Confirmed albuterol sulfate 90 mcg/actuation 2 puff INHALATION Q4H PRN #1 06/05/18 08/21/19 aerosol inhaler inhaler calcium carbonate 600 mg calcium 600 mg PO BID tab 08/09/18 08/21/19 (1,500 mg) tablet cholecalciferol (vitamin D3) 25 1,000 unit PO BID cap 08/09/18 08/21/19 mcg (1,000 unit) capsule nicotine (polacrilex) 4 mg gum 4 mg BC Q2H PRN #100 each MDD 24 01/23/19 08/21/19 anastrozole 1 mg tablet 1 mg PO DAILY 08/15/19 08/21/19 denosumab 60 mg/mL subcutaneous 60 mg SC [id number] 08/15/19 08/21/19 syringe omeprazole 40 mg capsule,delayed 40 mg PO DAILY #90 cap 08/16/19 08/21/19 release apixaban [Eliquis] 10 mg PO BID #60 tab 08/21/19 Previous Rx's Medication Instructions Recorded albuterol sulfate 90 mcg/actuation 2 puff INHALATION Q4H PRN #1 06/05/18 aerosol inhaler inhaler nicotine (polacrilex) 4 mg gum 4 mg BC Q2H PRN #100 each MDD 24 01/23/19 omeprazole 40 mg capsule,delayed 40 mg PO DAILY #90 cap 08/16/19 release apixaban [Eliquis] 10 mg PO BID #60 tab 08/21/19 Allergies Allergy/AdvReac Type Severity Reaction Status Date / Time minocycline Allergy Intermediate rash/hives Verified 08/21/19 15:55 amoxicillin Allergy Skin Rash Verified 08/21/19 15:55 Sulfa (Sulfonamide AdvReac Unknown Nausea Verified 08/21/19 15:55 Antibiotics) General Stated Complaint: Vascular SANG: 3 Review of Systems Constitutional Constitutional: Reports as per HPI, Denies chills, Denies fever(s), Denies headache(s), Reports malaise, Denies night sweats, Denies weakness, Reports weight gain and Denies weight loss ENT Ears, Nose, Mouth, and Throat: Denies headache(s) Cardiovascular Cardiovascular: Reports as per HPI, Denies chest pain, Denies chest pain at rest, Denies chest pain with activity, Denies lightheadedness, Denies palpitations, Denies dyspnea and Denies dyspnea on exertion Respiratory Respiratory: Reports as per HPI, Denies cough, Denies hemoptysis, Denies pain on inspiration, Denies pain with cough, Denies dyspnea and Denies dyspnea on exertion Musculoskeletal Musculoskeletal: Reports as per HPI and Denies tingling Integumentary/Breasts Skin/Breast: Reports as per HPI, Denies rash and Denies wounds Neurologic Neurologic: Reports as per HPI, Denies headache(s), Denies tingling, Denies paresthesias and Denies weakness Endocrine Endocrine: Denies palpitations [facility] Social History Smoking/Tobacco Use Status: Current every day Tobacco Type: cigarettes Second Hand Exposure: Yes Alcohol Intake: current Alcohol Intake frequency: 3 or more drinks per day Alcohol type: beer Substance use type: former substance user and marijuana Caregiver/Support person: No Household members: significant other and children Housing: house Pets and animals: Yes Pets and animals: dog(s) and hamster(s) Sexually active: Yes Do you think of yourself as: straight/heterosexual Current gender identity: female Duration: 30-45 minutes/day Frequency: daily Liz/Gnosticism: No preference Special liz needs: No Do you feel safe at home: Yes Do you feel safe in your relationship?: Yes Female Reproductive History Menstrual Menopause type: natural Date of menopause: 09/15/15 History History 4 Para Hx # Term Pregnancies Multiple births Hx # Pregnancies Ectopic pregnancies AB induced 2 Hx Number of Living Children 2 AB spontaneous Exam Const General: cooperative, healthy appearing, comfortable, no acute distress, well developed and well groomed Nutritional Appearance: average body habitus and well nourished Orientation: alert and awake Chest Chest: abnormal inspection of the chest (prominant vasculature right anterior chest), normal palpation of entire chest wall, no crepitus, no localized rib tenderness, no masses and no tenderness Resp Effort & Inspection: normal respiratory effort, able to speak in complete sentences and no respiratory distress Auscultation: clear to auscultation bilaterally Cardio Rate: regular rate Rhythm: regular rhythm Heart Sounds: S1 normal and S2 normal Skin General skin exam: no rashes or lesions noted and other (prominant veins anterior right side of chest) Lesions: no lesions Rashes: no rashes Trauma: no lacerations or abrasions Neuro General: alert and awake Cognition: normal cognition Speech: speech normal Gait: normal gait Motor: muscle tone normal throughout Sensory Exam: no sensory deficits noted Extrem Right upper extremity: normal to inspection, full ROM, normal capillary refill, edema (circumfrential swelling RUE), shoulder/upper arm Details: axillary nerve sensory function normal and normal ROM; no tenderness and no swelling, elbow/forearm Details: normal ROM; no tenderness and no swelling and hand (2+ distal pulses, full ROM); no cyanosis Psych Appearance: grossly normal and well kempt Mental Status: mental status grossly normal Speech and Movement: speech and movement normal Course Vital Signs Vital signs: Vital Signs Temperature 36.5 C 08/21/19 15:46 Pulse 74 08/21/19 15:46 Blood Pressure 132/89 08/21/19 15:46 Pulse Oximetry 99 08/21/19 15:46 Temperature 36.5 C 08/21/19 15:46 Temperature Source Temporal Artery Scan 08/21/19 15:46 Pulse 74 08/21/19 15:46 Respiratory Rate 16 08/21/19 15:50 Respiratory Effort Non-Labored 08/21/19 15:50 Respiratory Depth Normal 08/21/19 15:50 Blood Pressure 132/89 08/21/19 15:46 Blood Pressure Position Sitting 08/21/19 15:46 Pulse Oximetry 99 08/21/19 15:46 Oxygen Delivery Method Room Air 02/05/20 15:46 Oxygen Flow Rate 0 08/21/19 15:46 Pain Level 3 08/21/19 15:50
[2019-08-21] MEDS: Normal Saline Flush 10 ML SYR IVP (16:53)
[2019-08-21] MEDS: Normal Saline 1,000 ML 1000 ML IV (16:53)
[2019-08-21 16:56] LABS: Abs Immature Grans 0.01 k/cumm (0.0-0.09); Absolute Basophil Count 0.02 k/cumm (0.0-0.2); Absolute Eosinophil Count 0.07 k/cumm (0.0-0.7); Absolute Lymphocyte Count 1.62 k/cumm (1.2-3.4); Absolute Monocyte Count 0.63 k/cumm (0.11-0.7); Absolute Neutrophil Count 3.96 k/cumm (1.2-6.7); Basophils % 0.3; Eosinophils % 1.1; HCT 38.4 % (36.0-46.0); Immature Grans % 0.2 %; Lymphocytes % 25.7; Mean Corp. HGB Concentration 33.9 g/dL (32.0-36.0); Mean Corpuscular Hemoglobin 33.8 pg (27.0-33.0); Mean Corpuscular Volume 99.7 fL (80-95); Mean Platelet Volume 10.1 fL (8.0-11.0); Neutrophils % 62.7; Platelet Count 217 x1000/uL (130-400); RBC 3.85 m/cumm (4.00-5.20); RBC Distribution Width 12.5 % (11.7-14.6); White Blood Cell Count 6.31 k/cumm (4.4-10.8)
[2019-08-21] MEDS: Omnipaque 350 MG/ML 100 ML BTL 75 ML IJ (17:08)
[2019-08-21] MEDS: Normal Saline - Diluent 50 ML VIAL IV (17:10)
[2019-08-21 17:11] LABS: ALT 21 U/L (14-59); AST 19 U/L (15-37); Albumin 3.4 g/dL (3.4-5.0); Alkaline Phosphatase 92 U/L (46-116); Anion Gap 9.4 mmol/L (3-11); BUN 12 mg/dL (7-18); Bilirubin, Total 0.4 mg/dL (0.2-1.0); CO2 28.6 mmol/L (21.0-32.0); CREATININE 0.59 mg/dL (0.55-1.02); Calcium 8.1 mg/dL (8.5-10.1); Chloride 97 mmol/L (98-107); Glucose 100 mg/dL (74-106); Magnesium 2.1 mg/dL (1.8-2.4); PTT Activated 27.1 sec (21.0-31.4); Potassium 3.3 mmol/L (3.5-5.1); Prothrombin Time 9.9 sec (9.3-11.0); Sodium 135 mmol/L (136-145); Total Protein 7.1 g/dL (6.4-8.2)
[2019-08-21 17:12] LABS: Troponin I < 0.05 ng/Ml (<0.06)
--- NOTE | 2019-08-21 17:15 | DI.CT_ITS ---
EXAM: CT CHEST PE CTA CLINICAL HISTORY: known DVT subclavian vein, currently SOB TECHNIQUE: Axial CT angiography was performed with multi-slice acquisition and multi-planar and/or 3D reconstruc tions. COMPARISON: No exams were available for comparison FINDINGS: CT angiography of the chest was performed with intravenous infusion of 100 cc of Omnipaque 350. Ther e are severe pulmonary emphysematous changes with subpleural and centrilobular changes. There is a r ight paratracheal mass measuring up to about 7.6 cm in diameter highly suspicious for malignancy. No additional intrapulmonary findings. No evidence of thoracic aortic abnormality or pulmonary embolic disease. The mass extends to the level of the apex of the right upper lobe medially. No definite s upraclavicular or axillary adenopathy. No gross hilar adenopathy. No pleural effusion. No pneumoth orax. Right subclavian vein is occluded by the mass. Images obtained through the upper abdomen show unremarkable appearance of visualized portions of live r, spleen, pancreas, adrenals and kidneys. IMPRESSION: Large right paratracheal mass highly suspicious for malignancy. Tissue sampling recommended.
--- NOTE | 2019-08-21 18:06 | DI.VRAD_ITS ---
PROCEDURE INFORMATION: Exam: CT Angiography Chest With Contrast Exam date and time: 08/21/2019 4:30 PM Age: 48 years old Clinical indication: Shortness of breath; Patient HX: Known dvt sunclavian vein, currently SOB, HX of right sided breast cancer TECHNIQUE: Imaging protocol: Computed tomographic angiography of the chest with intravenous contrast. 3D rendering: MIP and/or 3D reconstructed images were created by the technologist. Radiation optimization: All CT scans at this facility use at least one of these dose optimization techniques: automated exposure control; mA and/or kV adjustment per patient size (includes targeted exams where dose is matched to clinical indication); or iterative reconstruction. Contrast material: OMNIPAQUE 350; Contrast volume: 75 ml; Contrast route: IV; COMPARISON: US AAA screening 04/24/2018 5:08 PM FINDINGS: Pulmonary arteries: Normal. No pulmonary emboli. Aorta: Unremarkable. No aortic aneurysm. No aortic dissection. Lungs: Moderate subpleural emphysema. No mass or consolidation. Pleural space: Unremarkable. No pneumothorax. No pleural effusion. Heart: Unremarkable. No cardiomegaly. No pericardial effusion. Mediastinum: There is a large right paratracheal mass measuring 7.6 x 6.2 by 7.2 cm. Additional subcentimeter right hilar and subcarinal lymph nodes. Lymph nodes: See Mediastinum Finding. Bones/joints: Unremarkable. No acute fracture. Soft tissues: Unremarkable. IMPRESSION: Right paratracheal mass concerning for malignancy. No evidence of pulmonary embolism. Dictated and Authenticated by: Alba Camacho MD. Ordering:SUDEEP Merrill MD
[2019-08-21] MEDS: Apixaban 5 MG TAB 10 MG PO ×2 (20:20→20:23)
[2019-08-21 20:34] VITALS: BP 145/80; PULSE 64; RESP 18; TEMP 36.8; O2SAT 98
== END 2019-08-21 20:30 | disposition home or self-care (01) ==
PROVIDERS: Emergency Provider Physician Assistant; PCP Nurse Practitioner Family
DX: I82.B11 Acute embolism and thrombosis of right subclavian vein (principal); R22.2 Localized swelling, mass and lump, trunk; F17.210 Nicotine dependence, cigarettes, uncomplicated
CPT/HCPCS: 36415; 71275; 80053; 96360; 99285; 83735; 84484; 85025; 85610; 85730; J3490

== ENCOUNTER 2019-10-03 00:22 | Outpatient (CLI) | payer MEDICAID, SELFPAY ==
[2019-10-03] MEDS: Normal Saline Flush 10 ML SYR IVP (09:47)
[2019-10-03] MEDS: Gadoterate meglumine 20 ML VIAL 11 ML IVP (09:48)
--- NOTE | 2019-10-03 10:06 | DI.MRI_ITS ---
EXAM: MR BRAIN WO/W CLINICAL HISTORY: NON-SMALL CELL CA OF RT LUNG, C34.91, STAGING. TECHNIQUE: Multiplanar multisequence MRI was performed. COMPARISON: No exams were available for comparison FINDINGS: MR examination of the brain was performed according to the usual protocol with additional post contra st axial and coronal T1 weighted imaging. The ventricular system is normal in appearance. There are scattered focal areas of abnormal signal in periventricular white matter and the matthew consistent wit h early small vessel microvascular ischemic changes. Tiny right lacunar infarct appears to be presen t. No other significant signal abnormality identified in the brain. Post contrast imaging shows no mass lesion or enhancing lesion. Diffusion-weighted imaging is within normal limits with no evidence of infarction. Susceptibility we ighted imaging is within normal limits with no evidence of intracranial hemorrhage. The orbital and temporal bone structures and pituitary appear intact. There is normal flow void in t he [id number] vasculature. IMPRESSION: No evidence of acute intracranial process. No evidence of intracranial metastatic disease. DATA REPOSITORY:
== END 2019-10-03 00:42 ==
PROVIDERS: PCP Nurse Practitioner Family; Visit Provider Internal Medicine Hematology & Oncology
DX: C34.11 Malignant neoplasm of upper lobe, right bronchus or lung (principal); Z12.89 Encounter for screening for malignant neoplasm of other sites; I67.82 Cerebral ischemia
CPT/HCPCS: 70553

== ENCOUNTER 2019-10-10 01:27 | Outpatient (RCR) | payer MEDICAID, SELFPAY | END 2019-10-15 23:59 | disposition home or self-care (01) | LOC: INF 01:27 | PROVIDERS: PCP Nurse Practitioner Family; Visit Provider Internal Medicine Hematology & Oncology | DX: R69 Illness, unspecified (principal) ==

== ENCOUNTER 2019-10-10 02:31 | Outpatient (CLI) | payer MEDICAID, SELFPAY ==
[2019-10-10 14:11] LABS: Absolute Basophil Count 0.02 k/cumm (0.0-0.2); Absolute Eosinophil Count 0.04 k/cumm (0.0-0.7); Absolute Lymphocyte Count 1.83 k/cumm (1.2-3.4); Absolute Monocyte Count 0.83 k/cumm (0.11-0.7); Absolute Neutrophil Count 3.22 k/cumm (1.2-6.7); Basophils % 0.3; Eosinophils % 0.7; HCT 38.6 % (36.0-46.0); HGB 13.1 g/dL (12.0-15.5); Lymphocytes % 30.8; Mean Corp. HGB Concentration 33.9 g/dL (32.0-36.0); Mean Corpuscular Hemoglobin 32.4 pg (27.0-33.0); Mean Corpuscular Volume 95.5 fL (80-95); Mean Platelet Volume 10.2 fL (8.0-11.0); Neutrophils % 54.2; Platelet Count 263 x1000/uL (130-400); RBC 4.04 m/cumm (4.00-5.20); RBC Distribution Width 12.4 % (11.7-14.6); White Blood Cell Count 5.94 k/cumm (4.4-10.8)
[2019-10-10 14:25] LABS: ALT 30 U/L (14-59); AST 22 U/L (15-37); Albumin 3.1 g/dL (3.4-5.0); Alkaline Phosphatase 105 U/L (46-116); Anion Gap 8.4 mmol/L (3-11); BUN 12 mg/dL (7-18); Bilirubin, Total 0.3 mg/dL (0.2-1.0); CO2 27.6 mmol/L (21.0-32.0); CREATININE 0.65 mg/dL (0.55-1.02); Calcium 8.8 mg/dL (8.5-10.1); Chloride 98 mmol/L (98-107); Glucose 100 mg/dL (74-106); LDH 214 U/L (81-234); Potassium 3.7 mmol/L (3.5-5.1); Sodium 134 mmol/L (136-145); Total Protein 7.1 g/dL (6.4-8.2)
[2019-10-10 14:44] LABS: Hemoglobin A1C 5.7 % (3.8-5.6)
[2019-10-10 15:13] LABS: Calculated LDL 168 mg/dL (<100); Cholesterol 226 mg/dL (<200); HDL Cholesterol 36 mg/dL (40-60); Triglyceride 112 mg/dL (<150)
== END 2019-10-10 02:51 ==
PROVIDERS: PCP Nurse Practitioner Family; Visit Provider Internal Medicine Hematology & Oncology
DX: C34.11 Malignant neoplasm of upper lobe, right bronchus or lung (principal); E78.5 Hyperlipidemia, unspecified; R73.09 Other abnormal glucose
CPT/HCPCS: 36415; 80053; 80061; 83036; 83615; 85025

== ENCOUNTER 2019-11-11 00:42 | Outpatient (RCR) | payer MEDICAID, SELFPAY ==
[2019-10-21 08:09] LABS: Abs Immature Grans 0.02 k/cumm (0.0-0.09); Absolute Eosinophil Count 0.05 k/cumm (0.0-0.7); Absolute Lymphocyte Count 0.98 k/cumm (1.2-3.4); Absolute Monocyte Count 0.32 k/cumm (0.11-0.7); Absolute Neutrophil Count 2.73 k/cumm (1.2-6.7); Eosinophils % 1.2; HCT 37.3 % (36.0-46.0); HGB 12.7 g/dL (12.0-15.5); Immature Grans % 0.5 %; Lymphocytes % 23.9; Mean Corpuscular Hemoglobin 32.6 pg (27.0-33.0); Mean Corpuscular Volume 95.9 fL (80-95); Mean Platelet Volume 10.3 fL (8.0-11.0); Monocytes % 7.8; Neutrophils % 66.6; Platelet Count 236 x1000/uL (130-400); RBC 3.89 m/cumm (4.00-5.20); RBC Distribution Width 12.7 % (11.7-14.6)
[2019-10-21 08:29] LABS: ALT 30 U/L (14-59); AST 24 U/L (15-37); Albumin 3.3 g/dL (3.4-5.0); Alkaline Phosphatase 98 U/L (46-116); Anion Gap 9.4 mmol/L (3-11); BUN 9 mg/dL (7-18); Bilirubin, Total 0.4 mg/dL (0.2-1.0); CO2 27.6 mmol/L (21.0-32.0); CREATININE 0.62 mg/dL (0.55-1.02); Calcium 9.1 mg/dL (8.5-10.1); Chloride 100 mmol/L (98-107); Glucose 96 mg/dL (74-106); LDH 200 U/L (81-234); Potassium 3.4 mmol/L (3.5-5.1); Sodium 137 mmol/L (136-145); Total Protein 7.4 g/dL (6.4-8.2)
[2019-10-21] MEDS: Normal Saline Flush 10 ML SYR IVP (08:37)
[2019-10-28] MEDS: Normal Saline Flush 10 ML SYR IVP (07:35)
[2019-10-28 08:05] LABS: Abs Immature Grans 0.01 k/cumm (0.0-0.09); Absolute Eosinophil Count 0.03 k/cumm (0.0-0.7); Absolute Lymphocyte Count 1.07 k/cumm (1.2-3.4); Absolute Monocyte Count 0.34 k/cumm (0.11-0.7); Absolute Neutrophil Count 2.42 k/cumm (1.2-6.7); Eosinophils % 0.8; HCT 39.2 % (36.0-46.0); HGB 13.5 g/dL (12.0-15.5); Immature Grans % 0.3 %; Lymphocytes % 27.6; Mean Corp. HGB Concentration 34.4 g/dL (32.0-36.0); Mean Corpuscular Hemoglobin 32.5 pg (27.0-33.0); Mean Corpuscular Volume 94.2 fL (80-95); Mean Platelet Volume 10.3 fL (8.0-11.0); Monocytes % 8.8; Neutrophils % 62.5; Platelet Count 212 x1000/uL (130-400); RBC 4.16 m/cumm (4.00-5.20); RBC Distribution Width 13.1 % (11.7-14.6); White Blood Cell Count 3.87 k/cumm (4.4-10.8)
[2019-10-28 08:16] LABS: ALT 29 U/L (14-59); AST 19 U/L (15-37); Albumin 3.5 g/dL (3.4-5.0); Alkaline Phosphatase 86 U/L (46-116); Anion Gap 10.1 mmol/L (3-11); BUN 11 mg/dL (7-18); Bilirubin, Total 0.6 mg/dL (0.2-1.0); CO2 28.9 mmol/L (21.0-32.0); Calcium 9.8 mg/dL (8.5-10.1); Chloride 105 mmol/L (98-107); Glucose 107 mg/dL (74-106); LDH 177 U/L (81-234); Potassium 3.9 mmol/L (3.5-5.1); Sodium 144 mmol/L (136-145); Total Protein 7.8 g/dL (6.4-8.2)
[2019-11-04] MEDS: Normal Saline Flush 10 ML SYR IVP (07:35)
[2019-11-04 08:01] LABS: Abs Immature Grans 0.01 k/cumm (0.0-0.09); Absolute Eosinophil Count 0.02 k/cumm (0.0-0.7); Absolute Lymphocyte Count 1.02 k/cumm (1.2-3.4); Absolute Monocyte Count 0.42 k/cumm (0.11-0.7); Absolute Neutrophil Count 2.07 k/cumm (1.2-6.7); Eosinophils % 0.6; HCT 38.3 % (36.0-46.0); HGB 12.9 g/dL (12.0-15.5); Immature Grans % 0.3 %; Lymphocytes % 28.8; Mean Corp. HGB Concentration 33.7 g/dL (32.0-36.0); Mean Corpuscular Hemoglobin 31.9 pg (27.0-33.0); Mean Corpuscular Volume 94.6 fL (80-95); Mean Platelet Volume 10.1 fL (8.0-11.0); Monocytes % 11.9; Neutrophils % 58.4; Platelet Count 149 x1000/uL (130-400); RBC 4.05 m/cumm (4.00-5.20); RBC Distribution Width 13.9 % (11.7-14.6); White Blood Cell Count 3.54 k/cumm (4.4-10.8)
[2019-11-04 08:13] LABS: ALT 26 U/L (14-59); AST 16 U/L (15-37); Albumin 3.6 g/dL (3.4-5.0); Alkaline Phosphatase 67 U/L (46-116); Anion Gap 8.3 mmol/L (3-11); BUN 13 mg/dL (7-18); Bilirubin, Total 0.5 mg/dL (0.2-1.0); CO2 29.7 mmol/L (21.0-32.0); CREATININE 0.68 mg/dL (0.55-1.02); Calcium 8.9 mg/dL (8.5-10.1); Chloride 100 mmol/L (98-107); Glucose 104 mg/dL (74-106); LDH 157 U/L (81-234); Potassium 3.5 mmol/L (3.5-5.1); Sodium 138 mmol/L (136-145); Total Protein 7.5 g/dL (6.4-8.2)
[2019-11-11 07:46] LABS: Absolute Eosinophil Count 0.03 k/cumm (0.0-0.7); Absolute Lymphocyte Count 0.59 k/cumm (1.2-3.4); Absolute Monocyte Count 0.19 k/cumm (0.11-0.7); Absolute Neutrophil Count 1.91 k/cumm (1.2-6.7); Eosinophils % 1.1; HCT 33.8 % (36.0-46.0); HGB 11.3 g/dL (12.0-15.5); Lymphocytes % 21.7; Mean Corp. HGB Concentration 33.4 g/dL (32.0-36.0); Mean Corpuscular Hemoglobin 31.7 pg (27.0-33.0); Mean Corpuscular Volume 94.9 fL (80-95); Mean Platelet Volume 9.9 fL (8.0-11.0); Neutrophils % 70.2; RBC 3.56 m/cumm (4.00-5.20); RBC Distribution Width 14.9 % (11.7-14.6); White Blood Cell Count 2.72 k/cumm (4.4-10.8)
[2019-11-11 08:00] LABS: ALT 24 U/L (14-59); AST 13 U/L (15-37); Albumin 3.3 g/dL (3.4-5.0); Alkaline Phosphatase 62 U/L (46-116); Anion Gap 7.4 mmol/L (3-11); BUN 11 mg/dL (7-18); Bilirubin, Total 0.7 mg/dL (0.2-1.0); CO2 28.6 mmol/L (21.0-32.0); CREATININE 0.66 mg/dL (0.55-1.02); Calcium 8.5 mg/dL (8.5-10.1); Chloride 100 mmol/L (98-107); Glucose 105 mg/dL (74-106); LDH 169 U/L (81-234); Sodium 136 mmol/L (136-145); Total Protein 6.8 g/dL (6.4-8.2)
[2019-11-11 08:02] LABS: Diff Comment PLT Morph Reviewed; Platelet Count 87 x1000/uL (130-400); RBC Morphology Normal
[2019-11-11 08:15] LABS: Potassium 2.9 mmol/L (3.5-5.1)
[2019-11-11] MEDS: Normal Saline Flush 10 ML SYR IVP (12:19)
== END 2019-11-14 23:59 | disposition home or self-care (01) ==
LOC: INF 00:42
PROVIDERS: PCP Nurse Practitioner Family; Visit Provider Internal Medicine Hematology & Oncology
DX: C34.91 Malignant neoplasm of unspecified part of right bronchus or lung (principal); Z45.2 Encounter for adjustment and management of vascular access device
CPT/HCPCS: 36415; 80053; 83615; 85025

== ENCOUNTER 2019-11-25 01:42 | Outpatient (RCR) | payer MEDICAID, SELFPAY ==
[2019-11-18] MEDS: Normal Saline Flush 10 ML SYR IVP (10:15)
[2019-11-18 10:28] LABS: Absolute Eosinophil Count 0.01 k/cumm (0.0-0.7); Absolute Lymphocyte Count 0.55 k/cumm (1.2-3.4); Absolute Monocyte Count 0.24 k/cumm (0.11-0.7); Absolute Neutrophil Count 1.24 k/cumm (1.2-6.7); Eosinophils % 0.5; HCT 36.5 % (36.0-46.0); HGB 12.3 g/dL (12.0-15.5); Mean Corp. HGB Concentration 33.7 g/dL (32.0-36.0); Mean Corpuscular Hemoglobin 32.5 pg (27.0-33.0); Mean Corpuscular Volume 96.6 fL (80-95); Mean Platelet Volume 10.5 fL (8.0-11.0); Monocytes % 11.8; Neutrophils % 60.7; Platelet Count 118 x1000/uL (130-400); RBC 3.78 m/cumm (4.00-5.20); White Blood Cell Count 2.04 k/cumm (4.4-10.8)
[2019-11-18 10:41] LABS: ALT 26 U/L (14-59); AST 20 U/L (15-37); Albumin 3.8 g/dL (3.4-5.0); Alkaline Phosphatase 68 U/L (46-116); Anion Gap 8.9 mmol/L (3-11); BUN 11 mg/dL (7-18); Bilirubin, Total 0.5 mg/dL (0.2-1.0); CO2 28.1 mmol/L (21.0-32.0); CREATININE 0.79 mg/dL (0.55-1.02); Calcium 9.5 mg/dL (8.5-10.1); Chloride 100 mmol/L (98-107); Glucose 101 mg/dL (74-106); LDH 189 U/L (81-234); Potassium 3.3 mmol/L (3.5-5.1); Sodium 137 mmol/L (136-145); Total Protein 7.6 g/dL (6.4-8.2)
== END 2019-12-15 23:59 | disposition home or self-care (01) ==
LOC: INF 01:42
PROVIDERS: PCP Nurse Practitioner Family; Visit Provider Internal Medicine Hematology & Oncology
DX: C34.91 Malignant neoplasm of unspecified part of right bronchus or lung (principal)
CPT/HCPCS: 36415; 80053; 83615; 85025

== ENCOUNTER 2020-01-30 01:43 | Outpatient (RCR) | payer MEDICAID, SELFPAY ==
[2020-01-30 12:38] LABS: Abs Immature Grans 0.01 k/cumm (0.0-0.09); Absolute Eosinophil Count 0.04 k/cumm (0.0-0.7); Absolute Lymphocyte Count 0.92 k/cumm (1.2-3.4); Absolute Monocyte Count 0.62 k/cumm (0.11-0.7); Eosinophils % 0.6; HCT 43.4 % (36.0-46.0); HGB 15.5 g/dL (12.0-15.5); Immature Grans % 0.2 %; Lymphocytes % 14.4; Mean Corp. HGB Concentration 35.7 g/dL (32.0-36.0); Mean Corpuscular Hemoglobin 36.9 pg (27.0-33.0); Mean Corpuscular Volume 103.3 fL (80-95); Mean Platelet Volume 10.5 fL (8.0-11.0); Monocytes % 9.7; Neutrophils % 75.1; Platelet Count 173 x1000/uL (130-400); RBC Distribution Width 12.6 % (11.7-14.6); White Blood Cell Count 6.39 k/cumm (4.4-10.8)
[2020-01-30 13:00] LABS: ALT 23 U/L (14-59); AST 24 U/L (15-37); Albumin 3.7 g/dL (3.4-5.0); Alkaline Phosphatase 92 U/L (46-116); BUN 11 mg/dL (7-18); Bilirubin, Total 0.5 mg/dL (0.2-1.0); CREATININE 0.58 mg/dL (0.55-1.02); Calcium 9.2 mg/dL (8.5-10.1); Chloride 100 mmol/L (98-107); Glucose 104 mg/dL (74-106); Potassium 3.5 mmol/L (3.5-5.1); Sodium 138 mmol/L (136-145); TSH 0.64 uIU/mL (0.36-3.74); Total Protein 7.6 g/dL (6.4-8.2)
[2020-01-30 13:10] LABS: T4 9.1 ug/mL (4.7-13.3)
[2020-01-30] MEDS: Normal Saline Flush 10 ML SYR 20 ML IVP (13:59)
== END 2020-02-14 23:59 | disposition home or self-care (01) ==
LOC: INF 01:43
PROVIDERS: PCP Nurse Practitioner Family; Visit Provider Internal Medicine Hematology & Oncology
DX: C34.91 Malignant neoplasm of unspecified part of right bronchus or lung (principal)
CPT/HCPCS: 36415; 80053; 84436; 84443; 85025

== ENCOUNTER 2020-03-16 02:07 | Outpatient (CLI) | payer MEDICAID, SELFPAY ==
--- NOTE | 2020-03-16 | DI.CT_ITS ---
EXAM: CT CHEST W CLINICAL HISTORY: KNOWN NONSMALL CELL CA RT LUNG, FACIAL ERYTHEMA TECHNIQUE: Imaging Protocol: Axial computed tomography images with coronal and sagittal reformatted images were created and reviewed CONTRAST MATERIAL: Intravenous: Omnipaque 350 Contrast volume:70 mL. COMPARISON: CT CT CHEST PE CTA from 08/21/2019 FINDINGS: Tracheobronchial tree: Patent where visualized. Mediastinum and Verena: Please see the section on soft tissues below. Pulmonary parenchyma: There is again seen a right paratracheal mass. There has been interval decreas e in size of the mass compared to the prior examination. Mass does narrow and encase the right brach ial cephalic vein and a portion of the right internal jugular and subclavian veins there is decreased mass effect on the and the arteries in the superior mediastinum. Centrilobular and paraseptal emphy sematous changes are present. Scarring in the left lower lobe. No focal consolidating infiltrates. Pleura: No effusion or pneumothorax. Heart: The heart is not dilated. No coronary artery calcifications are seen. Small pericardial effusi on. Aorta: Thoracic aorta non-dilated. Mild atherosclerosis. Upper abdomen: Since the prior examination there have developed bilateral adrenal masses. The right adrenal mass measures 4.2 x 2.4 cm. The left adrenal mass measures 5.6 x 3.2 cm. There is a 1.5 cm soft tissue mass interposed between the left kidney and the diaphragm. This was not present on the prior examination and is suspicious for metastasis. Lymph nodes: Please see the discussion on soft tissues below. Bones: Normal. Tubes, Catheters, and Lines: Soft tissues: There are right supraclavicular mass is present. These are incompletely imaged on this examination. The largest measures 4.9 cm. They show peripheral enhancement and central decreased a ttenuation. These likely reflect adenopathy. There are similar or mass is seen in the right axilla. The largest measures 1.7 cm. These masses were not apparent on the CT scan from 08/21/2019. There is a 2.1 cm peripherally enhancing mass in the axillary tail region of the right breast. IMPRESSION: 1. Overall, there has been significant worsening of the metastatic disease compared to the prior exam ination. There has been interval development of bilateral adrenal masses, abdominal masses and thora cic adenopathy since the prior examination. 2. Interval decrease in size of the right paratracheal mass since 08/21/2019. RADIATION DOSE DELIVERED: 368.24mGy.cm Total DLP DATA REPOSITORY: All CT scans at this facility are submitted to the National Radiology Data Registry (NRDR) Dose Index Registry (DIR) with the [employer] ([employer]). RADIATION OPTIMIZATION: All CT scans at this facility use at least one of these dose optimization te chniques: automated exposure control; mA and/or kV adjustment per patient size (includes targeted exa ms where dose is matched to clinical indication); or iterative reconstruction.
[2020-03-16] MEDS: Omnipaque 350 MG/ML 100 ML BTL 70 ML IJ (14:58)
[2020-03-16] MEDS: Normal Saline - Diluent 50 ML VIAL IV (15:00)
[2020-03-16] MEDS: Normal Saline Flush 10 ML SYR IVP (15:01)
== END 2020-03-16 02:27 ==
PROVIDERS: PCP Nurse Practitioner Family; Visit Provider Radiology Radiation Oncology
DX: C34.91 Malignant neoplasm of unspecified part of right bronchus or lung (principal); C79.71 Secondary malignant neoplasm of right adrenal gland; C79.72 Secondary malignant neoplasm of left adrenal gland; C79.89 Secondary malignant neoplasm of other specified sites
CPT/HCPCS: 71260; J3490

== ENCOUNTER 2020-03-16 02:37 | Outpatient (RCR) | payer MEDICAID, SELFPAY ==
[2020-02-20] MEDS: Normal Saline Flush 10 ML SYR IVP (07:14)
[2020-02-20 07:30] LABS: Absolute Basophil Count 0.01 10^3/uL (0.0-0.2); Absolute Eosinophil Count 0.06 10^3/uL (0.0-0.7); Absolute Monocyte Count 0.43 10^3/uL (0.1-0.8); Absolute Neutrophil Count 1.85 10^3/uL (1.2-6.7); Basophils % 0.3; Eosinophils % 1.9; HCT 41.5 % (36.0-46.0); Lymphocytes % 25.4; MCH 35.4 pg (27.0-33.0); MCHC 33.7 % (32.0-36.0); MCV 104.8 fL (80-95); MPV 10.5 fL (8.0-11.0); Monocytes % 13.7; Neutrophils % 58.7; Nucleated RBC 0 %; Platelet Count 190 10^3/uL (130-400); RBC 3.96 10^6/uL (3.93-5.22); RDW 13.2 % (11.7-14.6); RDW-SD 50.4 fL; WBC 3.15 10^3/uL (4.4-10.8)
[2020-02-20 07:48] LABS: ALT 18 U/L (14-59); AST 22 U/L (15-37); Albumin 3.1 g/dL (3.4-5.0); Alkaline Phosphatase 71 U/L (46-116); Anion Gap 8.9 mmol/L (3-11); BUN 7 mg/dL (7-18); Bilirubin, Total 0.3 mg/dL (0.2-1.0); CO2 30.1 mmol/L (21.0-32.0); CREATININE 0.63 mg/dL (0.55-1.02); Calcium 8.8 mg/dL (8.5-10.1); Chloride 100 mmol/L (98-107); FREE T4 1.32 ng/dL (0.76-1.46); Glucose 98 mg/dL (74-106); LDH 246 U/L (81-234); Potassium 3.6 mmol/L (3.5-5.1); Sodium 139 mmol/L (136-145); Total Protein 6.9 g/dL (6.4-8.2)
[2020-02-20 09:30] LABS: Magnesium 1.6 mg/dL (1.8-2.4)
[2020-03-12] MEDS: Normal Saline Flush 10 ML SYR IVP (08:44)
[2020-03-12 08:55] LABS: Abs Immature Grans 0.02 10^3/uL (0.0-0.06); Absolute Basophil Count 0.01 10^3/uL (0.0-0.2); Absolute Eosinophil Count 0.05 10^3/uL (0.0-0.7); Absolute Lymphocyte Count 0.86 10^3/uL (1.2-3.4); Absolute Monocyte Count 0.92 10^3/uL (0.1-0.8); Absolute Neutrophil Count 3.06 10^3/uL (1.2-6.7); Basophils % 0.2; HGB 12.2 g/dL (11.2-15.7); Immature Grans % 0.4; Lymphocytes % 17.5; MCH 35.2 pg (27.0-33.0); MCHC 33.9 % (32.0-36.0); MCV 103.7 fL (80-95); MPV 10.4 fL (8.0-11.0); Monocytes % 18.7; Neutrophils % 62.2; Nucleated RBC 0 %; Platelet Count 225 10^3/uL (130-400); RBC 3.47 10^6/uL (3.93-5.22); RDW 15.1 % (11.7-14.6); RDW-SD 56.6 fL; WBC 4.92 10^3/uL (4.4-10.8)
[2020-03-12 09:13] LABS: ALT 15 U/L (14-59); AST 19 U/L (15-37); Alkaline Phosphatase 73 U/L (46-116); Anion Gap 7.1 mmol/L (3-11); BUN 8 mg/dL (7-18); Bilirubin, Total 0.3 mg/dL (0.2-1.0); CO2 33.9 mmol/L (21.0-32.0); CREATININE 0.79 mg/dL (0.55-1.02); Calcium 9.2 mg/dL (8.5-10.1); Chloride 94 mmol/L (98-107); FREE T4 1.39 ng/dL (0.76-1.46); Glucose 109 mg/dL (74-106); LDH 268 U/L (81-234); Potassium 3.3 mmol/L (3.5-5.1); Sodium 135 mmol/L (136-145); TSH 0.96 uIU/mL (0.36-3.74)
[2020-03-12 10:58] LABS: Magnesium 1.6 mg/dL (1.8-2.4)
[2020-03-16] MEDS: Heparin 500 UNITS/5 ML SYRINGE IV (14:30)
[2020-03-16] MEDS: Normal Saline Flush 10 ML SYR IVP (14:30)
== END 2020-03-16 23:59 | disposition home or self-care (01) ==
LOC: INF 02:37
PROVIDERS: PCP Nurse Practitioner Family; Visit Provider Internal Medicine Hematology & Oncology
DX: C34.91 Malignant neoplasm of unspecified part of right bronchus or lung (principal); Z45.2 Encounter for adjustment and management of vascular access device
CPT/HCPCS: 36591; 80053; 96523; 83615; 83735; 84439; 84443; 85025

== ENCOUNTER 2020-04-02 03:19 | Outpatient (RCR) | payer MEDICAID, SELFPAY ==
[2020-04-02] MEDS: Normal Saline Flush 10 ML SYR IVP (07:05)
[2020-04-02 07:23] LABS: Abs Immature Grans 0.02 10^3/uL (0.0-0.06); Absolute Basophil Count 0.01 10^3/uL (0.0-0.2); Absolute Eosinophil Count 0.05 10^3/uL (0.0-0.7); Absolute Lymphocyte Count 0.89 10^3/uL (1.2-3.4); Absolute Monocyte Count 0.73 10^3/uL (0.1-0.8); Absolute Neutrophil Count 3.78 10^3/uL (1.2-6.7); Basophils % 0.2; Eosinophils % 0.9; HCT 27.3 % (36.0-46.0); HGB 9.6 g/dL (11.2-15.7); Immature Grans % 0.4; Lymphocytes % 16.2; MCH 36.6 pg (27.0-33.0); MCHC 35.2 % (32.0-36.0); MCV 104.2 fL (80-95); MPV 10.5 fL (8.0-11.0); Monocytes % 13.3; Nucleated RBC 0 %; Platelet Count 206 10^3/uL (130-400); RBC 2.62 10^6/uL (3.93-5.22); RDW-SD 64.4 fL; WBC 5.48 10^3/uL (4.4-10.8)
[2020-04-02 07:58] LABS: ALT 15 U/L (14-59); AST 17 U/L (15-37); Albumin 3.1 g/dL (3.4-5.0); Alkaline Phosphatase 67 U/L (46-116); Anion Gap 8.3 mmol/L (3-11); BUN 12 mg/dL (7-18); Bilirubin, Total 0.5 mg/dL (0.2-1.0); CO2 30.7 mmol/L (21.0-32.0); CREATININE 1.06 mg/dL (0.55-1.02); Calcium 9.2 mg/dL (8.5-10.1); Chloride 96 mmol/L (98-107); Estimated GFR 55.33 (mL/min/1.73m2); FREE T4 1.43 ng/dL (0.76-1.46); Glucose 97 mg/dL (74-106); LDH 269 U/L (81-234); Magnesium 1.3 mg/dL (1.8-2.4); Potassium 3.5 mmol/L (3.5-5.1); Sodium 135 mmol/L (136-145); TSH 1.43 uIU/mL (0.36-3.74); Total Protein 6.9 g/dL (6.4-8.2)
== END 2020-04-15 23:59 | disposition home or self-care (01) ==
LOC: INF 03:19
PROVIDERS: PCP Nurse Practitioner Family; Visit Provider Internal Medicine Hematology & Oncology
DX: C34.91 Malignant neoplasm of unspecified part of right bronchus or lung (principal); Z45.2 Encounter for adjustment and management of vascular access device
CPT/HCPCS: 36591; 80053; 83615; 83735; 84439; 84443; 85025

== ENCOUNTER 2020-05-14 08:30 | Outpatient (RCR) | payer MEDICAID, SELFPAY ==
[2020-04-30] MEDS: Normal Saline Flush 10 ML SYR IVP (10:11)
[2020-04-30 10:13] LABS: Abs Immature Grans 0.14 10^3/uL (0.0-0.06); Absolute Basophil Count 0.01 10^3/uL (0.0-0.2); Absolute Eosinophil Count 0.01 10^3/uL (0.0-0.7); Absolute Lymphocyte Count 0.57 10^3/uL (1.2-3.4); Absolute Monocyte Count 0.91 10^3/uL (0.1-0.8); Absolute Neutrophil Count 8.55 10^3/uL (1.2-6.7); Basophils % 0.1; Eosinophils % 0.1; HCT 26.7 % (36.0-46.0); HGB 8.9 g/dL (11.2-15.7); Immature Grans % 1.4; Lymphocytes % 5.6; MCH 38.7 pg (27.0-33.0); MCHC 33.3 % (32.0-36.0); MCV 116.1 fL (80-95); MPV 11.2 fL (8.0-11.0); Monocytes % 8.9; Neutrophils % 83.9; Nucleated RBC 0 %; Platelet Count 200 10^3/uL (130-400); RDW 14.2 % (11.7-14.6); RDW-SD 59.7 fL; WBC 10.19 10^3/uL (4.4-10.8)
[2020-04-30 10:23] LABS: ALT 14 U/L (14-59); AST 22 U/L (15-37); Albumin 2.9 g/dL (3.4-5.0); Alkaline Phosphatase 86 U/L (46-116); Anion Gap 9.9 mmol/L (3-11); BUN 16 mg/dL (7-18); Bilirubin, Total 0.5 mg/dL (0.2-1.0); CO2 30.1 mmol/L (21.0-32.0); CREATININE 0.95 mg/dL (0.55-1.02); Chloride 94 mmol/L (98-107); Glucose 108 mg/dL (74-106); Potassium 4.1 mmol/L (3.5-5.1); Sodium 134 mmol/L (136-145); Total Protein 6.7 g/dL (6.4-8.2)
[2020-04-30 10:27] LABS: Basophilic Stippling Present; Diff Comment RBC Morph Reviewed; Macrocytosis 3+; Polychromasia Present
[2020-05-07] MEDS: Normal Saline Flush 10 ML SYR IVP (10:45)
[2020-05-07 11:11] LABS: Abs Immature Grans 0.06 10^3/uL (0.0-0.06); Absolute Lymphocyte Count 0.33 10^3/uL (1.2-3.4); Absolute Monocyte Count 0.43 10^3/uL (0.1-0.8); Absolute Neutrophil Count 3.86 10^3/uL (1.2-6.7); HCT 22.6 % (36.0-46.0); HGB 7.6 g/dL (11.2-15.7); Immature Grans % 1.3; Lymphocytes % 7.1; MCH 38.2 pg (27.0-33.0); MCHC 33.6 % (32.0-36.0); MCV 113.6 fL (80-95); MPV 12.2 fL (8.0-11.0); Monocytes % 9.2; Neutrophils % 82.4; Nucleated RBC 0 %; RBC 1.99 10^6/uL (3.93-5.22); RDW 13.2 % (11.7-14.6); RDW-SD 54.7 fL; WBC 4.68 10^3/uL (4.4-10.8)
[2020-05-07 11:21] LABS: Diff Comment PLT Morph Reviewed; Macrocytosis 3+; Platelet Count 59 10^3/uL (130-400); Polychromasia Present
[2020-05-07 11:43] LABS: ALT 76 U/L (14-59); AST 97 U/L (15-37); Albumin 2.9 g/dL (3.4-5.0); Alkaline Phosphatase 142 U/L (46-116); Anion Gap 6.8 mmol/L (3-11); BUN 19 mg/dL (7-18); Bilirubin, Total 0.4 mg/dL (0.2-1.0); CO2 31.2 mmol/L (21.0-32.0); CREATININE 0.89 mg/dL (0.55-1.02); Calcium 9.1 mg/dL (8.5-10.1); Chloride 94 mmol/L (98-107); FREE T4 1.25 ng/dL (0.76-1.46); Glucose 108 mg/dL (74-106); Magnesium 1.6 mg/dL (1.8-2.4); Potassium 3.7 mmol/L (3.5-5.1); Sodium 132 mmol/L (136-145); Total Protein 6.5 g/dL (6.4-8.2)
[2020-05-07 12:27] LABS: Folate 10.9 ng/mL (8.6-20.0); Vitamin B12 559 pg/mL (193-986)
[2020-05-07 12:29] LABS: Ferritin 1602 ng/mL (8-252)
[2020-05-08 08:04] VITALS: BP 132/91; PULSE 95; RESP 18; TEMP 36.3; O2SAT 100
[2020-05-08 08:15] VITALS: BP 130/86; PULSE 88; RESP 18; TEMP 36.3; O2SAT 98
[2020-05-08] MEDS: diphenhydrAMINE 25 MG CAP (08:15)
[2020-05-08] MEDS: Normal Saline Flush 10 ML SYR IVP (08:16)
[2020-05-08] MEDS: Heparin 500 UNITS/5 ML SYRINGE IV (08:16)
[2020-05-08 08:30] VITALS: BP 146/88; PULSE 84; RESP 18; TEMP 36.8; O2SAT 96
[2020-05-08 08:45] VITALS: BP 134/88; PULSE 99; RESP 18; TEMP 37; O2SAT 98
[2020-05-08 09:15] VITALS: BP 126/81; PULSE 95; RESP 17; TEMP 36.9; O2SAT 98
[2020-05-08 09:45] VITALS: BP 118/79; PULSE 97; RESP 18; TEMP 36.9; O2SAT 96
[2020-05-14] MEDS: Normal Saline Flush 10 ML SYR IVP (08:46)
[2020-05-14 08:54] LABS: Abs Immature Grans 0.05 10^3/uL (0.0-0.06); Absolute Basophil Count 0.01 10^3/uL (0.0-0.2); Absolute Eosinophil Count 0.01 10^3/uL (0.0-0.7); Absolute Lymphocyte Count 0.47 10^3/uL (1.2-3.4); Basophils % 0.2; Eosinophils % 0.2; HCT 28.1 % (36.0-46.0); HGB 9.3 g/dL (11.2-15.7); Immature Grans % 0.8; Lymphocytes % 7.3; MCH 36.6 pg (27.0-33.0); MCHC 33.1 % (32.0-36.0); MCV 110.6 fL (80-95); MPV 11.8 fL (8.0-11.0); Monocytes % 10.9; Neutrophils % 80.6; Nucleated RBC 0 %; RBC 2.54 10^6/uL (3.93-5.22); RDW 17.5 % (11.7-14.6); RDW-SD 71.6 fL; WBC 6.44 10^3/uL (4.4-10.8)
[2020-05-14 09:09] LABS: ALT 35 U/L (14-59); AST 24 U/L (15-37); Alkaline Phosphatase 124 U/L (46-116); Anion Gap 5.6 mmol/L (3-11); BUN 16 mg/dL (7-18); Bilirubin, Total 0.5 mg/dL (0.2-1.0); CO2 30.4 mmol/L (21.0-32.0); Chloride 98 mmol/L (98-107); Glucose 104 mg/dL (74-106); Potassium 3.6 mmol/L (3.5-5.1); Sodium 134 mmol/L (136-145); Total Protein 6.5 g/dL (6.4-8.2)
[2020-05-14 09:23] LABS: Platelet Count 78 10^3/uL (130-400)
[2020-05-14 09:24] LABS: Anisocytosis 2+; Diff Comment RBC Morph Reviewed; Macrocytosis 2+; Polychromasia Present
== END 2020-05-16 23:59 | disposition home or self-care (01) ==
LOC: INF 08:30
PROVIDERS: PCP Nurse Practitioner Family; Visit Provider Internal Medicine Hematology & Oncology
DX: Z45.2 Encounter for adjustment and management of vascular access device (principal); C34.11 Malignant neoplasm of upper lobe, right bronchus or lung; D63.0 Anemia in neoplastic disease
CPT/HCPCS: 36430; 36591; 80053; 86850; 86900; 86901; 86920; 82607; 82728; 82746; 83735; 84439; 85025; 85045; P9016

== ENCOUNTER 2020-06-08 11:05 | Emergency (ER) | payer MEDICAID, SELFPAY ==
[2020-06-08] VITALS (30 sets, daily range): BP systolic 97–133; BP diastolic 70–85; PULSE 90–113; RESP 15–25; TEMP 36.3; O2SAT 94–100
--- NOTE | 2020-06-08 11:00 | RT.EKG_ITS ---
APPROVED REPORT Exam: Resting ECG Patient Location: E HR:100 bpm ECG Measurements Heart Rate 100 AXIS MO 133 P 96 QRSd 74 QRS 89 QT 334 T 79 QTc 431 Conclusion Sinus tachycardia...rate> 99 I have reviewed and interpreted ECG and agree with software generated interpretation.
--- NOTE | 2020-06-08 11:40 | ED.GENADUL_ITS ---
Discharge Plan Disposition Patient Disposition: HOME Condition: Stable Discharge Details Clinical Impression: Weakness, GI bleed Primary Care Provider: Michelle Aguiar ED Provider: Chriss Machado Home Meds and New Rx's Prescriptions: New pantoprazole [Protonix] 40 mg tablet,delayed release (DR/EC) 40 mg PO DAILY Qty: 14 RF: 0 sucralfate [Carafate] 1 gram tablet 1 g PO Q6H 5 Days Qty: 20 RF: 0 Continued calcium carbonate [Calcium 600] 600 mg calcium (1,500 mg) tablet 600 mg PO BID PRNRF: 0 nicotine (polacrilex) 4 mg gum 4 mg BC Q2H MDD 24 PRN (Reason: nicotine cravings) Qty: 100 RF: 4 Eliquis 5 mg tablet 5 mg PO BID Qty: 180 RF: 4 paclitaxel-protein bound 100 mg suspension for reconstitution 50 mg IV ONCE RF: 0 carboplatin 150 mg recon soln 232 mg IV ONCE RF: 0 albuterol sulfate [ProAir HFA] 90 mcg/actuation HFA aerosol inhaler 2 puff Inhalation Q4H PRN Qty: 8 RF: 4 Discontinued omeprazole 40 mg capsule,delayed release(DR/EC) 40 mg PO DAILY Qty: 90 RF: 4 Discharge Instructions Instructions: Gastrointestinal Bleeding (ED), Weakness (ED) Additional Instructions: At this time we have set you up for a blood transfusion tomorrow at the infusion center at 11:30 AM. Upper endoscopy was offered today but declined. I have discontinued your omeprazole and added on Carafate and Protonix, please take as directed. We then set you up with a surgical appointment on Monday the , they will be reaching out to you for exact timeframe. I also spoke with your oncology team, Dr. Beaver, who is aware of your visit here in the ER, is comfortable with you being discharged from the ER at this time. I do recommend reaching out to his office later today or tomorrow for prompt outpatient reevaluation. Please watch for new or worsening symptoms and return to the ER for any concerns. Discharge Data Discharge Date/Time-TO BE ENTERED AT DEPARTURE: 06/08/20 14:24 Medical Decision Making 49-year-old female, DNR, DNI with history of anemia, GERD, malignant neoplasm of the right breast, metastatic non-small lung cancer, contacted her oncology team today sent to the ER for potential GI bleed. Has noticed ongoing fatigue for a month or so but worse over the past week with dark tarry stools. Denies any bright red blood in her stools, vomiting, abdominal pain, nausea or vomiting. Patient presents with minimal tachycardia. Will establish IV access, give 1 L lactated Ringer's, 1 L normal saline, type and screen as well as a cardiac work- up. Upon reevaluation heart rate is now in the 90s. Blood work reveals a white blood cell count of 8.14 hemoglobin 8.8 hematocrit 26.2 platelet count 142. Her anemia appears to be near baseline. I was able to speak with the infusion center who states that they have a standing order if her hemoglobin drops below 8.5 to give 1 unit transfusion. They would be able to see her tomorrow as an outpatient for transfusion. PT 11.1 INR 1.1 potassium 3.7 creatinine 0.68 with a GFR greater than 60. Calcium 8.4 magnesium 1.6. Will give 1 g IV magnesium here in the ER. Alk phosphatase 188, troponin less than 0.05 BNP 171. Patient has responded to the IV fluid, heart rate is trending downward blood pressure 117/77. Laboratory values do not reveal that she requires an emergent transfusion here in the ER, I have canceled the blood products. I was able to speak with the patient's oncologist, Dr. Beaver. He is relieved that her H&H are near baseline and that her platelet and white blood cell count is normal. She has had a bad reaction to the chemotherapy in the past but that does not seem to be the case today.. He believes that the patient can safely be discharged from our ER. I will arrange surgical follow-up for upper GI. He will have his office arrange her to have a blood transfusion tomorrow through the infusion clinic per their protocol. After speaking with oncology I reached out to Dr. Simon, surgery here at our facility. She was actually able to perform the upper GI today however patient declines. Dr. Simon recommend discontinuing omeprazole, adding on Protonix and Carafate. I was able to make the patient an appointment on Monday the with Dr. Brewer for outpatient upper GI. They will be in contact with her to determine the time she needs to go in that day. I will order a Covid test now to help expedite the outpatient follow-up and surgical procedure Patient set up to receive 1 unit of packed red blood cells tomorrow through the infusion clinic per their protocol at 11:30 AM. Patient remained stable under my care. She has no additional questions or concerns and is requesting discharge. She will have her transfusion tomorrow, follow-up with surgery as already scheduled. She was encouraged to return to the ER for new or worsening symptoms. She will contact her oncology team later today or tomorrow for prompt outpatient reevaluation. Medical Records Medical records reviewed: Yes I reviewed the patient's medical records. Lab Data Lab results reviewed: Yes I reviewed the patient's lab results. Lab results narrative: Laboratory Tests Range/Units 06/08/20 06/08/20 06/08/20 11:45 11:45 11:45 WBC (4.4-10.8) 10^3/uL RBC (3.93-5.22) 10^6/uL Hgb (11.2-15.7) g/dL Hct (36.0-46.0) % MCV (80-95) fL MCH (27.0-33.0) pg MCHC (32.0-36.0) % RDW (11.7-14.6) % Plt Count (130-400) 10^3/uL MPV (8.0-11.0) fL Immature Gran % Neutrophils % Lymphocytes % Monocytes % Eosinophils % Basophils % Nucleated RBC % % Absolute Neutrophils (1.2-6.7) 10^3/uL Absolute Lymphocytes (1.2-3.4) 10^3/uL Absolute Monocytes (0.1-0.8) 10^3/uL Absolute Eosinophils (0.0-0.7) 10^3/uL Absolute Basophils (0.0-0.2) 10^3/uL PT (9.3-11.0) sec 11.1 H INR (0.9-1.1) 1.1 APTT (21.0-27.5) sec 29.0 H VBG Lactate (0.6-1.4) mmol/L 1.2 Sodium (136-145) mmol/L Potassium (3.5-5.1) mmol/L Chloride (98-107) mmol/L Carbon Dioxide (21.0-32.0) mmol/L Anion Gap (3-11) mmol/L BUN (7-18) mg/dL Creatinine (0.55-1.02) mg/dL Estimated GFR/1.73 m2 (mL/min/1.73m2) Glucose (74-106) mg/dL Calcium (8.5-10.1) mg/dL Magnesium (1.8-2.4) mg/dL Total Bilirubin (0.2-1.0) mg/dL AST (15-37) U/L ALT (14-59) U/L Alkaline Phosphatase (46-116) U/L Troponin I (<0.06) ng/mL NT-Pro-B Natriuret Pep (<300) pg/mL 171 Total Protein (6.4-8.2) g/dL Albumin (3.4-5.0) g/dL Patient ABO/Rh Antibody Screen Crossmatch Range/Units 06/08/20 06/08/20 06/08/20 11:45 11:45 11:45 WBC (4.4-10.8) 10^3/uL 8.14 RBC (3.93-5.22) 10^6/uL 2.47 L Hgb (11.2-15.7) g/dL 8.8 L Hct (36.0-46.0) % 26.2 L MCV (80-95) fL 106.1 H MCH (27.0-33.0) pg 35.6 H MCHC (32.0-36.0) % 33.6 RDW (11.7-14.6) % 18.6 H Plt Count (130-400) 10^3/uL 142 MPV (8.0-11.0) fL 10.9 Immature Gran % 1.1 Neutrophils % 73.5 Lymphocytes % 8.8 Monocytes % 16.2 Eosinophils % 0.2 Basophils % 0.2 Nucleated RBC % % 0 Absolute Neutrophils (1.2-6.7) 10^3/uL 5.97 Absolute Lymphocytes (1.2-3.4) 10^3/uL 0.72 L Absolute Monocytes (0.1-0.8) 10^3/uL 1.32 H Absolute Eosinophils (0.0-0.7) 10^3/uL 0.02 Absolute Basophils (0.0-0.2) 10^3/uL 0.02 PT (9.3-11.0) sec INR (0.9-1.1) APTT (21.0-27.5) sec VBG Lactate (0.6-1.4) mmol/L Sodium (136-145) mmol/L 135 L Potassium (3.5-5.1) mmol/L 3.7 Chloride (98-107) mmol/L 98 Carbon Dioxide (21.0-32.0) mmol/L 31.5 Anion Gap (3-11) mmol/L 5.5 BUN (7-18) mg/dL 12 Creatinine (0.55-1.02) mg/dL 0.68 Estimated GFR/1.73 m2 (mL/min/1.73m2) >= 60.00 Glucose (74-106) mg/dL 92 Calcium (8.5-10.1) mg/dL 8.4 L Magnesium (1.8-2.4) mg/dL 1.6 L Total Bilirubin (0.2-1.0) mg/dL 0.3 AST (15-37) U/L 32 ALT (14-59) U/L 24 Alkaline Phosphatase (46-116) U/L 188 H Troponin I (<0.06) ng/mL < 0.05 NT-Pro-B Natriuret Pep (<300) pg/mL Total Protein (6.4-8.2) g/dL 5.5 L Albumin (3.4-5.0) g/dL 2.2 L Patient ABO/Rh O Positive Antibody Screen Negative Crossmatch See Detail Range/Units 06/08/20 14:36 WBC (4.4-10.8) 10^3/uL RBC (3.93-5.22) 10^6/uL Hgb (11.2-15.7) g/dL Hct (36.0-46.0) % MCV (80-95) fL MCH (27.0-33.0) pg MCHC (32.0-36.0) % RDW (11.7-14.6) % Plt Count (130-400) 10^3/uL MPV (8.0-11.0) fL Immature Gran % Neutrophils % Lymphocytes % Monocytes % Eosinophils % Basophils % Nucleated RBC % % Absolute Neutrophils (1.2-6.7) 10^3/uL Absolute Lymphocytes (1.2-3.4) 10^3/uL Absolute Monocytes (0.1-0.8) 10^3/uL Absolute Eosinophils (0.0-0.7) 10^3/uL Absolute Basophils (0.0-0.2) 10^3/uL PT (9.3-11.0) sec INR (0.9-1.1) APTT (21.0-27.5) sec VBG Lactate (0.6-1.4) mmol/L Sodium (136-145) mmol/L Potassium (3.5-5.1) mmol/L Chloride (98-107) mmol/L Carbon Dioxide (21.0-32.0) mmol/L Anion Gap (3-11) mmol/L BUN (7-18) mg/dL Creatinine (0.55-1.02) mg/dL Estimated GFR/1.73 m2 (mL/min/1.73m2) Glucose (74-106) mg/dL Calcium (8.5-10.1) mg/dL Magnesium (1.8-2.4) mg/dL Total Bilirubin (0.2-1.0) mg/dL AST (15-37) U/L ALT (14-59) U/L Alkaline Phosphatase (46-116) U/L Troponin I (<0.06) ng/mL Cancelled NT-Pro-B Natriuret Pep (<300) pg/mL Total Protein (6.4-8.2) g/dL Albumin (3.4-5.0) g/dL Patient ABO/Rh Antibody Screen Crossmatch ECG Data Attestation: I personally reviewed and interpreted this ECG (s) as follows: Interpretation: Please see official report by Dr. Fischer. Sinus tachycardia, ventricular rate of 100. No STEMI HPI General Mode of arrival: ambulatory . Date/Time Provider Initiated Documentation: 06/08/20 11:05 . Limitations to Documentation: no limitations . Information obtained by: patient . HPI Narrative: This is a 49-year-old female who is a DNR, DNI, past medical history of metastatic non-small cell lung cancer, GERD, hyperlipidemia, current smoker. She reports that she is currently receiving chemotherapy infusion every 2 weeks, was unable to have her infusion done 1 month ago, did have her infusion 2 weeks ago, and is scheduled to have her next chemotherapy on Monday. She states general fatigue for 1 month however worsening over the past week. She reports dyspnea with exertion, weakness, fatigue, and noticed black stool mixed in with her brown bowel movements that began this past . She does take Eliquis. She contacted her cancer center and they sent her here to the ER for evaluation of potential GI bleed. Patient states that she has required blood transfusions during her chemotherapy treatments in the past. She denies headache, neck pain, chest pain, cough, fever, abdominal pain, vomiting, dysuria, hematuria, numbness, tingling, focal weakness. She does report mild nausea. Related Data Home Medications Medication Instructions Recorded Confirmed calcium carbonate 600 mg calcium 600 mg PO BID PRN tab 08/09/18 08/21/19 (1,500 mg) tablet nicotine (polacrilex) 4 mg gum 4 mg BC Q2H PRN #100 each MDD 24 01/23/19 06/08/20 apixaban 5 mg tablet 5 mg PO BID #180 tab 09/30/19 06/08/20 carboplatin 150 mg intravenous 232 mg IV ONCE each 10/31/19 solution paclitaxel-protein bound 100 mg 50 mg IV ONCE each 10/31/19 intravenous suspension albuterol sulfate 90 mcg/actuation 2 puff INHALATION Q4H PRN #8 gm 02/27/20 06/08/20 aerosol inhaler pantoprazole [Protonix] 40 mg PO DAILY #14 tab 06/08/20 sucralfate [Carafate] 1 g PO Q6H 5 Days #20 tab 06/08/20 Previous Rx's Medication Instructions Recorded nicotine (polacrilex) 4 mg gum 4 mg BC Q2H PRN #100 each MDD 24 01/23/19 apixaban 5 mg tablet 5 mg PO BID #180 tab 09/30/19 albuterol sulfate 90 mcg/actuation 2 puff INHALATION Q4H PRN #8 gm 02/27/20 aerosol inhaler pantoprazole [Protonix] 40 mg PO DAILY #14 tab 06/08/20 sucralfate [Carafate] 1 g PO Q6H 5 Days #20 tab 06/08/20 Allergies Allergy/AdvReac Type Severity Reaction Status Date / Time minocycline Allergy Intermediate rash/hives Verified 06/08/20 11:18 amoxicillin Allergy Skin Rash Verified 06/08/20 11:18 Sulfa (Sulfonamide AdvReac Unknown Nausea Verified 06/08/20 11:18 Antibiotics) General Stated Complaint: GenMedical SANG: 2 Review of Systems Constitutional Constitutional: Reports fatigue, Denies fever(s), Denies headache(s) and Reports weakness Eyes Eyes: Denies change in vision ENT Ears, Nose, Mouth, and Throat: Denies headache(s), Reports neck pain and Denies throat swelling Cardiovascular Cardiovascular: Denies chest pain and Denies dyspnea Respiratory Respiratory: Denies cough and Denies dyspnea Gastrointestinal Gastrointestinal: Denies abdominal pain, Reports melena, Denies hematochezia, Denies nausea and Denies vomiting Genitourinary Genitourinary: Denies dysuria Musculoskeletal Musculoskeletal: Denies back pain, Reports neck pain, Denies numbness, Denies stiffness and Denies tingling Integumentary/Breasts Skin/Breast: Denies rash Neurologic Neurologic: Denies headache(s), Denies numbness, Denies tingling and Reports weakness Endocrine Endocrine: Reports fatigue Allergic/Immunologic Allergic/Immunologic: Denies throat swelling [facility] Medical History Anemia Bullous emphysema DNI (do not intubate) DNR (do not resuscitate) GERD (gastroesophageal reflux disease) Hyperlipidemia Malignant neoplasm of right breast (~04/2017) IDC, DCIS, HER-2/michael positive, ER positive, HR negative. S/p chemo, radiation, partial mastectomy Metastatic non-small cell lung cancer (~09/2019) Stage IIIC 09/2019, completed chemoradiation. 12/2019 PET scan showed new right adrenal mass, right cervical and subpectoral nodes, breast and perirenal lesions Osteopenia Dexa 2018 Prediabetes Right subclavian vein thrombosis Found on US 08/21/19, chest CT negative for PE Surgical History S/P appendectomy (~07/2007) S/P tubal ligation (~2006) Status post partial mastectomy of right breast (11/20/17) Family History Mother Essential hypertension Heart disease Hyperlipidemia Myocardial infarction Pacemaker Father , at age 42 of suicide Suicide Brother No problems noted. Brother No problems noted. Brother No problems noted. Brother No problems noted. Sister No problems noted. Sister No problems noted. Son No problems noted. Son No problems noted. Maternal Grandfather Hyperlipidemia Essential hypertension Heart disease Maternal Grandmother , at 36 of brain aneurysm Brain aneurysm Paternal Grandfather Prostate cancer Lung cancer Paternal Grandmother No problems noted. Social History Smoking/Tobacco Use Status: Current every day Tobacco Type: cigarettes Second Hand Exposure: Yes Smoking risk assessment performed?: Yes Alcohol Intake: current Alcohol Intake frequency: 3 or more drinks per day Alcohol type: beer Substance use type: former substance user and marijuana Caregiver/Support person: No Household members: significant other and children Housing: house Pets and animals: Yes Pets and animals: dog(s) and hamster(s) Sexually active: Yes Do you think of yourself as: straight/heterosexual Current gender identity: female Duration: 30-45 minutes/day Frequency: daily Liz/Voodoo: No preference Special liz needs: No Do you feel safe at home: Yes Do you feel safe in your relationship?: Yes Female Reproductive History Menstrual Menopause type: natural Date of menopause: 09/15/15 History History 4 Para Hx # Term Pregnancies Multiple births Hx # Pregnancies Ectopic pregnancies AB induced 2 Hx Number of Living Children 2 AB spontaneous Exam Const General: cooperative, comfortable and no acute distress Orientation: alert, awake and oriented x3 HENMT Head: normal to inspection, normocephalic and atraumatic Face and sinus: normal facial exam Mouth: moist mucous membranes abnormal (Slightly dry) Throat: posterior oropharynx normal Eyes General: appearance normal, both eyes and all related structures Conjunctivae: conjunctivae normal Sclera: sclerae normal Neck Neck: full ROM, no meningeal signs, trachea midline, supple and tender (known right-sided neck mass) Chest Chest: other (Left sided chest EZ port) Resp Effort & Inspection: normal respiratory effort and able to speak in complete sentences Auscultation: diminished lung sounds bilaterally in the lower lung wilson (Minimal) Cardio Rate: tachycardic (102) Rhythm: regular rhythm GI Inspection: normal to inspection Palpation: soft, not firm, no guarding and nontender Auscultation: normal bowel sounds Rectal Exam - female: visual inspection normal, normal sphincter tone, abnormal stool (Dark brown some black stool), heme positive stool Rectal exam heme positive - female: 1+ and other (Performed with female RN in room) Back/Spine/Pelvis Back: No back tenderness Skin General skin exam: no rashes or lesions noted Neuro General: patient alert, patient awake, patient oriented x3, moves all extremities and no focal motor deficits Cognition: normal cognition Speech: speech normal Gait: normal gait Motor: muscle tone normal throughout Sensory Exam: no sensory deficits noted Extrem General: normal to inspection, full ROM, capillary refill normal, no pedal edema and no calf tenderness Psych Appearance: grossly normal Mental Status: mental status grossly normal Course Vital Signs Vital signs: Vital Signs Temperature 36.3 C L 06/08/20 11:08 Pulse 103 H 06/08/20 11:08 Respiratory Rate 24 06/08/20 11:08 Blood Pressure 133/75 06/08/20 11:08 Pulse Oximetry 100 06/08/20 11:08 Temperature 36.3 C L 06/08/20 11:08 Temperature Source Temporal Artery Scan 06/08/20 11:08 Pulse 103 H 06/08/20 11:08 Respiratory Rate 24 06/08/20 11:08 Respiratory Effort Non-Labored 06/08/20 11:13 Blood Pressure 133/75 06/08/20 11:08 Blood Pressure Position Supine 06/08/20 11:08 Pulse Oximetry 100 06/08/20 11:08 Oxygen Delivery Method Room Air 06/08/20 11:08 Oxygen Flow Rate 0 06/08/20 11:08 Pain Level 4 06/08/20 11:08 Lab/Test Results Lab/Test Results: Laboratory Tests Range/Units 06/08/20 11:34 Crossmatch See Detail
[2020-06-08 11:57] LABS: Abs Immature Grans 0.09 10^3/uL (0.0-0.06); Absolute Basophil Count 0.02 10^3/uL (0.0-0.2); Absolute Eosinophil Count 0.02 10^3/uL (0.0-0.7); Absolute Lymphocyte Count 0.72 10^3/uL (1.2-3.4); Absolute Monocyte Count 1.32 10^3/uL (0.1-0.8); Absolute Neutrophil Count 5.97 10^3/uL (1.2-6.7); Basophils % 0.2; Eosinophils % 0.2; HCT 26.2 % (36.0-46.0); HGB 8.8 g/dL (11.2-15.7); Immature Grans % 1.1; Lymphocytes % 8.8; MCH 35.6 pg (27.0-33.0); MCHC 33.6 % (32.0-36.0); MCV 106.1 fL (80-95); MPV 10.9 fL (8.0-11.0); Monocytes % 16.2; Neutrophils % 73.5; Nucleated RBC 0 %; Platelet Count 142 10^3/uL (130-400); RBC 2.47 10^6/uL (3.93-5.22); RDW 18.6 % (11.7-14.6); RDW-SD 70.5 fL; WBC 8.14 10^3/uL (4.4-10.8)
[2020-06-08] MEDS: Lactated Ringers 1,000 ML 1000 ML IV (12:05)
[2020-06-08] MEDS: Normal Saline Flush 10 ML SYR IVP ×2 (12:13→14:15)
[2020-06-08 12:22] LABS: ALT 24 U/L (14-59); AST 32 U/L (15-37); Albumin 2.2 g/dL (3.4-5.0); Alkaline Phosphatase 188 U/L (46-116); Anion Gap 5.5 mmol/L (3-11); BUN 12 mg/dL (7-18); Bilirubin, Total 0.3 mg/dL (0.2-1.0); CO2 31.5 mmol/L (21.0-32.0); CREATININE 0.68 mg/dL (0.55-1.02); Calcium 8.4 mg/dL (8.5-10.1); Chloride 98 mmol/L (98-107); Glucose 92 mg/dL (74-106); Magnesium 1.6 mg/dL (1.8-2.4); Potassium 3.7 mmol/L (3.5-5.1); Sodium 135 mmol/L (136-145); Total Protein 5.5 g/dL (6.4-8.2)
[2020-06-08 12:23] LABS: Troponin I < 0.05 ng/mL (<0.06)
--- NOTE | 2020-06-08 12:34 | DI.RAD_ITS ---
EXAM: XR PORTABLE CHEST AP CLINICAL HISTORY: weakness TECHNIQUE: 2D digital imaging was performed. COMPARISON: CT CT CHEST W from 03/16/2020 FINDINGS: LUNGS: Clear. No pleural abnormality seen. HEART: Normal size.. MEDIASTINUM: Mass right medial lung apex versus adenopathy. Mass in the supraclavicular region on th e right. OTHER FINDINGS: Contour deformity of the right breast. A port overlies the right chest with the tip in the lower SVC. IMPRESSION: No acute pulmonary findings. DATA REPOSITORY: RADIATION DOSE DELIVERED:
[2020-06-08] MEDS: MAGNESIUM SULFATE 1 GM/100 ML BAG IVPB (13:00)
[2020-06-08] MEDS: Normal Saline 1,000 ML 1000 ML IV (13:00)
--- NOTE | 2020-06-08 13:53 | NUR.NOTE ---
Nursing Note: Referral faxed to [facility]
[2020-06-08] MEDS: Heparin 500 UNITS/5 ML SYRINGE (14:15)
[2020-06-09 17:48] LABS: COVID-19 RT-PCR UVMMC Result Negative (Negative)
== END 2020-06-08 14:24 | disposition home or self-care (01) ==
PROVIDERS: Emergency Provider Physician Assistant; PCP Nurse Practitioner Family
DX: K92.2 Gastrointestinal hemorrhage, unspecified (principal); E83.42 Hypomagnesemia; C78.00 Secondary malignant neoplasm of unspecified lung; Z79.899 Other long term (current) drug therapy; Z95.828 Presence of other vascular implants and grafts; Z03.818 Encounter for observation for suspected exposure to other biological agents ruled out
CPT/HCPCS: 36591; 80053; 86850; 86900; 86901; 86920; 93005; 96361; 96365; 99285; U0003; 71045; 83605; 83735; 83880; 84484; 85025; 85610; 85730; 93010; J3475

== ENCOUNTER 2020-06-10 07:27 | Day surgery (SDC) | payer MEDICAID, SELFPAY ==
--- NOTE | 2020-06-10 06:54 | W.PM.ENDDOP ---
Date of service: 06/10/20 Endoscopy Report DATE OF PROCEDURE: 06/10/20 PRE-OP DIAGNOSIS: Anemia, Melena POST-OP DIAGNOSIS: same PROCEDURE: EGD SURGEON: Floresita Brewer ANESTHESIA: other (General/ASA /) COMPLICATIONS: None DISPOSITION: same day INDICATIONS: (1) Anemia: MOst likley multifactorial. Need to rule out GI bleed as patient needs to stay on her Eliquis. (2) Melena: 49 year old female seen in the ED with hx of intermittent melena. She has a hx of metastatic non-small cell lung cancer. She is on chemotherapy q 2 weeks. Her next treatment is scheduled for this monday. She does have chronic anemia but with the new onset of melena there is concern for GI bleed. Most likely source is the stomach or duodenum. Patient was Covid tested in the ED yesterday. No results yet. Due to urgency of this case I will place her on my schedule for tomorrow. I called ans spoke to Stephen Givens about the patient and that even if COVID test doesn't come back I feel her situation is urgent and she needs to be taken care of tomorrow, especially with the holiday weekend coming up. The procedure was explained to the patient as well as possible complications. Her questions were answered to her satisfaction and she wished to proceed. No guarantees were given or implied. EGD under sedation FINDINGS: 1. mild inflammation of the stomach, esophagus and duodenum. 2. There was what appeared to be a sessile polyp in the duodenum. This was not biopsied due to the fact that patient was on eliquis. 3. There was no old blood and no active bleeding. PROCEDURE DESCRIPTION: After informed consent was obtained the patient was take to the procedure room and placed in a supine position. Monitors were applied and a time out was done. The patients name, date of , procedure type, allergies to medications and metal in their body was reviewed. A bite block was placed and the patient was sedated. Once sedated and comfortable the gastroscope was advanced through the oropharynx which was grossly normal into the esophagus. The proximal and mid-esophagus were normal. In the distal esophagus there was some inflammation noted. The scope was advanced into the stomach and through the pylorus into the 3rd portion of the duodenum. The duodenum was noted to have mild inflammation. There was a sessile polyp noted in the second portion of the duodenum. This was not biopsied as the patient is on eliquis and has been having melena. The scope was retracted back into the stomach. There was minimal inflammation. No ulcers, masses or bleeding was noted. The scope was retroflexed. The cardia and fundus were noted to be normal. There was a small hiatal hernia noted. The scope was retracted back into the esophagus. Again mild inflammation was noted. There were a couple of areas, <1 cm in length, that grossly looked like Tyson's. The Z line was regular. The GE junction was at 32 cm. The scope was removed and the patient was woken up and taken back to [facility] in stable condition. Follow up: with oncology on Monday. A set of pictures were given to the patient.
--- NOTE | 2020-06-10 06:55 | W.PM.DSUDISC ---
Discharge Plan Disposition Patient Disposition: HOME Condition: Good Discharge Details Reason For Visit: GI BLEED/MELENA Attending Provider: Floresita Brewer Primary Care Provider: Michelle Aguiar Home Meds and New Rx's Prescriptions: New pantoprazole [Protonix] 40 mg tablet,delayed release (DR/EC) 40 mg PO DAILY Qty: 30 RF: 0 sucralfate [Carafate] 1 gram tablet 1 g PO QACHS 9 Days Qty: 36 RF: 0 Continued nicotine (polacrilex) 4 mg gum 4 mg BC Q2H MDD 24 PRN (Reason: nicotine cravings) Qty: 100 RF: 4 Eliquis 5 mg tablet 5 mg PO BID Qty: 180 RF: 4 paclitaxel-protein bound 100 mg suspension for reconstitution 50 mg IV ONCE RF: 0 carboplatin 150 mg recon soln 232 mg IV ONCE RF: 0 albuterol sulfate [ProAir HFA] 90 mcg/actuation HFA aerosol inhaler 2 puff Inhalation Q4H PRN Qty: 8 RF: 4 pantoprazole [Protonix] 40 mg tablet,delayed release (DR/EC) 40 mg PO DAILY Qty: 14 RF: 0 sucralfate [Carafate] 1 gram tablet 1 g PO Q6H 5 Days Qty: 20 RF: 0 Discharge Instructions Additional Instructions: Findings: mild inflammation of the stomach, mild inflammation of the duodenum. Duodenal Polyp? GE junction inflammation No active bleeding Follow up: as needed Please call if you develop: fevers >101.5 Nausea or Vomiting Abdominal pain that is not transient DAY SURGERY UNIT POST ENDOSCOPY INSTRUCTIONS 1. Because there will be medication in your system for the next 24 hours, you may feel a little sleepy. Your coordination will be affected. Therefore: a. Do not drive or operate dangerous equipment for 24 hours. b. Do not drink alcohol beverages for 24 hours (not even beer). c. Plan to go home and rest for the day. 2. Generally there are no restrictions on your activity after a day or so has gone by, but you may feel a bit fatigued for a few days. 3 After you arrive home you may have a light meal and return to a normal diet as you can tolerate it without feeling sick to your stomach. 4. After surgery, you may feel pain or discomfort. This should be only transient, but if it persists please contact your doctor. 5. If there are any questions regarding the findings of your procedure, please feel free to contact your doctor. 6. If you are unable to contact your doctor with a problem, contact the hospital at [phone]. 7. Continue all your regular medications unless directed otherwise. I understand the above instructions and have no questions. Signature of Patient or Responsible Adult Escort Date/Time Name of Responsible Adult Escort Signature of Nurse Date/Time Activity:: Activity as Tolerated Diet:: As Tolerated Discharge Orders Discharge Orders: Discharge Order (Routine); Ordered 06/10/20 Ordered By: Floresita Brewer
[2020-06-10 07:30] VITALS: BP 117/79; PULSE 98; RESP 21; TEMP 36.5; O2SAT 97
[2020-06-10] MEDS: Lactated Ringers 1,000 ML 80 ML IV (08:00)
[2020-06-10 10:59] VITALS: BP 125/79; PULSE 85; RESP 18; TEMP 36.8; O2SAT 93
[2020-06-10] MEDS: Normal Saline Flush 10 ML SYR IV (11:10)
[2020-06-10] MEDS: Heparin 500 UNITS/5 ML SYRINGE (11:11)
== END 2020-06-10 11:26 | disposition home or self-care (01) ==
LOC: SUR 07:28
PROVIDERS: PCP Nurse Practitioner Family; Visit Provider Surgery
PROC: 0DJ68ZZ Inspection of Stomach, Via Natural or Artificial Opening Endoscopic (ICD-10-PCS; CPT 43235; principal; 2020-06-10 08:45)
DX: K92.1 Melena (principal); D64.9 Anemia, unspecified; K31.7 Polyp of stomach and duodenum; K20.90 Esophagitis, unspecified without bleeding; Z79.01 Long term (current) use of anticoagulants; K29.70 Gastritis, unspecified, without bleeding; E78.5 Hyperlipidemia, unspecified; K21.9 Gastro-esophageal reflux disease without esophagitis; C34.90 Malignant neoplasm of unspecified part of unspecified bronchus or lung; C79.9 Secondary malignant neoplasm of unspecified site
CPT/HCPCS: 43235; 81025; J2001; J2704

== ENCOUNTER 2020-06-12 05:17 | Outpatient (RCR) | payer MEDICAID, SELFPAY ==
[2020-05-17 00:07] VITALS: BP 118/79; PULSE 97; RESP 18; TEMP 36.9
[2020-05-21] VITALS (8 sets, daily range): BP systolic 108–118; BP diastolic 73–79; PULSE 82–98; RESP 15–19; TEMP 36.2–37.3; O2SAT 96–99
[2020-05-21] MEDS: Normal Saline Flush 10 ML SYR IVP (07:55)
[2020-05-21] MEDS: Heparin 500 UNITS/5 ML SYRINGE IV (08:00)
[2020-05-21 08:26] LABS: Abs Immature Grans 0.04 10^3/uL (0.0-0.06); Absolute Basophil Count 0.01 10^3/uL (0.0-0.2); Absolute Eosinophil Count 0.02 10^3/uL (0.0-0.7); Absolute Lymphocyte Count 0.53 10^3/uL (1.2-3.4); Absolute Monocyte Count 0.48 10^3/uL (0.1-0.8); Absolute Neutrophil Count 2.63 10^3/uL (1.2-6.7); Basophils % 0.3; Eosinophils % 0.5; HCT 24.4 % (36.0-46.0); HGB 8.1 g/dL (11.2-15.7); Immature Grans % 1.1; Lymphocytes % 14.3; MCH 36.5 pg (27.0-33.0); MCHC 33.2 % (32.0-36.0); MCV 109.9 fL (80-95); MPV 11.8 fL (8.0-11.0); Monocytes % 12.9; Neutrophils % 70.9; Nucleated RBC 0 %; RBC 2.22 10^6/uL (3.93-5.22); RDW 17.1 % (11.7-14.6); RDW-SD 68.8 fL; WBC 3.71 10^3/uL (4.4-10.8)
[2020-05-21 08:46] LABS: Anisocytosis 1+; Diff Comment PLT Morph Reviewed; Platelet Count 47 10^3/uL (130-400)
[2020-05-21 08:47] LABS: Macrocytosis 2+; Polychromasia Present
[2020-05-21 08:54] LABS: ALT 58 U/L (14-59); AST 38 U/L (15-37); Albumin 2.6 g/dL (3.4-5.0); Alkaline Phosphatase 169 U/L (46-116); Anion Gap 8.9 mmol/L (3-11); BUN 13 mg/dL (7-18); Bilirubin, Total 0.4 mg/dL (0.2-1.0); CO2 29.1 mmol/L (21.0-32.0); CREATININE 0.94 mg/dL (0.55-1.02); Calcium 8.5 mg/dL (8.5-10.1); Chloride 93 mmol/L (98-107); Glucose 97 mg/dL (74-106); Magnesium 1.5 mg/dL (1.8-2.4); Potassium 3.8 mmol/L (3.5-5.1); Sodium 131 mmol/L (136-145); TSH 2.06 uIU/mL (0.36-3.74); Total Protein 6.1 g/dL (6.4-8.2)
[2020-05-21 09:47] LABS: FREE T4 1.35 ng/dL (0.76-1.46); LDH 334 U/L (81-234)
[2020-05-28] MEDS: Normal Saline Flush 10 ML SYR IVP (08:09)
[2020-05-28 08:15] LABS: Abs Immature Grans 0.04 10^3/uL (0.0-0.06); Absolute Basophil Count 0.01 10^3/uL (0.0-0.2); Absolute Eosinophil Count 0.02 10^3/uL (0.0-0.7); Absolute Lymphocyte Count 0.67 10^3/uL (1.2-3.4); Absolute Monocyte Count 1.12 10^3/uL (0.1-0.8); Absolute Neutrophil Count 3.24 10^3/uL (1.2-6.7); Basophils % 0.2; Eosinophils % 0.4; HCT 28.7 % (36.0-46.0); HGB 9.6 g/dL (11.2-15.7); Immature Grans % 0.8; Lymphocytes % 13.1; MCHC 33.4 % (32.0-36.0); MCV 104.7 fL (80-95); MPV 11.1 fL (8.0-11.0); Neutrophils % 63.5; Nucleated RBC 0 %; Platelet Count 240 10^3/uL (130-400); RBC 2.74 10^6/uL (3.93-5.22); RDW 17.9 % (11.7-14.6); RDW-SD 68.9 fL
[2020-05-28 08:31] LABS: ALT 24 U/L (14-59); AST 28 U/L (15-37); Albumin 2.5 g/dL (3.4-5.0); Alkaline Phosphatase 157 U/L (46-116); Anion Gap 7.3 mmol/L (3-11); BUN 10 mg/dL (7-18); Bilirubin, Total 0.4 mg/dL (0.2-1.0); CO2 30.7 mmol/L (21.0-32.0); CREATININE 0.88 mg/dL (0.55-1.02); Calcium 8.6 mg/dL (8.5-10.1); Chloride 95 mmol/L (98-107); Glucose 115 mg/dL (74-106); Magnesium 1.7 mg/dL (1.8-2.4); Potassium 3.4 mmol/L (3.5-5.1); Sodium 133 mmol/L (136-145); Total Protein 6.1 g/dL (6.4-8.2)
[2020-06-08 11:57] LABS: Lactate 1.2 mmol/L (0.6-1.4)
[2020-06-08 12:29] LABS: NT-proBNP 171 pg/mL (<300)
[2020-06-08 12:37] LABS: INR 1.1 (0.9-1.1); Prothrombin Time 11.1 sec (9.3-11.0)
[2020-06-09 11:47] VITALS: BP 105/70; PULSE 103; RESP 18; TEMP 36.9; O2SAT 98
[2020-06-09 12:07] VITALS: BP 111/74; PULSE 108; RESP 18; TEMP 36.9; O2SAT 98
[2020-06-09 12:23] VITALS: BP 106/74; PULSE 111; RESP 18; TEMP 36.6; O2SAT 97
[2020-06-09 12:53] VITALS: BP 115/80; PULSE 101; RESP 18; TEMP 36.7; O2SAT 97
[2020-06-09 13:23] VITALS: BP 103/70; PULSE 101; RESP 18; TEMP 37.5; O2SAT 97
[2020-06-09] MEDS: Heparin 500 UNITS/5 ML SYRINGE IV (13:43)
[2020-06-09] MEDS: Normal Saline Flush 10 ML SYR IVP (13:43)
[2020-06-12] MEDS: Normal Saline Flush 10 ML SYR IVP (10:18)
[2020-06-12 10:30] LABS: Abs Immature Grans 0.09 10^3/uL (0.0-0.06); Absolute Basophil Count 0.03 10^3/uL (0.0-0.2); Absolute Eosinophil Count 0.01 10^3/uL (0.0-0.7); Absolute Lymphocyte Count 0.96 10^3/uL (1.2-3.4); Absolute Monocyte Count 1.61 10^3/uL (0.1-0.8); Basophils % 0.3; Eosinophils % 0.1; HCT 31.8 % (36.0-46.0); HGB 10.5 g/dL (11.2-15.7); Immature Grans % 0.8; Lymphocytes % 8.4; MCH 33.4 pg (27.0-33.0); MCV 101.3 fL (80-95); MPV 11.2 fL (8.0-11.0); Monocytes % 14.1; Neutrophils % 76.3; Nucleated RBC 0 %; Platelet Count 332 10^3/uL (130-400); RBC 3.14 10^6/uL (3.93-5.22); RDW-SD 70.3 fL; WBC 11.42 10^3/uL (4.4-10.8)
[2020-06-12 10:36] LABS: Absolute Neutrophil Count 8.71 10^3/uL (1.2-6.7)
[2020-06-12 10:46] LABS: ALT 17 U/L (14-59); AST 26 U/L (15-37); Albumin 2.2 g/dL (3.4-5.0); Alkaline Phosphatase 162 U/L (46-116); Anion Gap 8.7 mmol/L (3-11); BUN 12 mg/dL (7-18); Bilirubin, Total 0.7 mg/dL (0.2-1.0); CO2 27.3 mmol/L (21.0-32.0); CREATININE 0.65 mg/dL (0.55-1.02); Calcium 8.6 mg/dL (8.5-10.1); Chloride 95 mmol/L (98-107); Glucose 89 mg/dL (74-106); Magnesium 1.4 mg/dL (1.8-2.4); Potassium 3.5 mmol/L (3.5-5.1); Sodium 131 mmol/L (136-145); Total Protein 5.9 g/dL (6.4-8.2)
== END 2020-06-15 23:59 | disposition home or self-care (01) ==
LOC: INF 05:17
PROVIDERS: Physician Assistant; PCP Nurse Practitioner Family; Visit Provider Internal Medicine Hematology & Oncology
DX: C34.91 Malignant neoplasm of unspecified part of right bronchus or lung (principal); D63.0 Anemia in neoplastic disease; Z79.899 Other long term (current) drug therapy
CPT/HCPCS: 36430; 36591; 80053; 86850; 86900; 86901; 86920; 83605; 83615; 83735; 83880; 84439; 84443; 85025; 85610; 85730; P9016

== ENCOUNTER 2020-06-25 04:23 | Outpatient (RCR) | payer MEDICAID, SELFPAY ==
[2020-06-18] MEDS: Normal Saline Flush 10 ML SYR IVP (12:09)
[2020-06-18 12:16] LABS: Absolute Basophil Count 0.01 10^3/uL (0.0-0.2); Absolute Lymphocyte Count 0.58 10^3/uL (1.2-3.4); Absolute Monocyte Count 0.96 10^3/uL (0.1-0.8); Basophils % 0.1; Eosinophils % 0.2; HGB 10.6 g/dL (11.2-15.7); Immature Grans % 1.5; Lymphocytes % 4.4; MCH 33.7 pg (27.0-33.0); MCHC 33.1 % (32.0-36.0); MCV 101.6 fL (80-95); MPV 9.9 fL (8.0-11.0); Monocytes % 7.3; Neutrophils % 86.5; Nucleated RBC 0 %; Platelet Count 560 10^3/uL (130-400); RBC 3.15 10^6/uL (3.93-5.22); RDW 18.6 % (11.7-14.6); RDW-SD 69.2 fL; WBC 13.19 10^3/uL (4.4-10.8)
[2020-06-18 12:19] LABS: Absolute Eosinophil Count 0.03 10^3/uL (0.0-0.7); Absolute Neutrophil Count 11.41 10^3/uL (1.2-6.7)
[2020-06-18 12:25] LABS: ALT 26 U/L (14-59); AST 39 U/L (15-37); Albumin 2.7 g/dL (3.4-5.0); Alkaline Phosphatase 134 U/L (46-116); Anion Gap 5.4 mmol/L (3-11); BUN 16 mg/dL (7-18); Bilirubin, Total 0.4 mg/dL (0.2-1.0); CO2 33.6 mmol/L (21.0-32.0); CREATININE 0.77 mg/dL (0.55-1.02); Calcium 8.9 mg/dL (8.5-10.1); Chloride 98 mmol/L (98-107); Glucose 115 mg/dL (74-106); Magnesium 1.6 mg/dL (1.8-2.4); Potassium 3.5 mmol/L (3.5-5.1); Sodium 137 mmol/L (136-145); Total Protein 6.2 g/dL (6.4-8.2)
== END 2020-07-16 23:59 | disposition home or self-care (01) ==
LOC: INF 04:23
PROVIDERS: PCP Nurse Practitioner Family; Visit Provider Internal Medicine Hematology & Oncology
DX: C34.90 Malignant neoplasm of unspecified part of unspecified bronchus or lung (principal); Z45.2 Encounter for adjustment and management of vascular access device
CPT/HCPCS: 36591; 80053; 86900; 86901; 83735; 85025